=== PATIENT | male | born 1950 | race Caucasian/White ===

== ENCOUNTER 2018-11-19 12:53 | Inpatient (IN) ==
--- NOTE | 2018-11-19 13:15 | Emergency Department Note ---
Disposition Clinical Impression: Hyperglycemia, Dehydration, Abnormal blood smear Disposition: Admitted As Inpatient Condition: Fair [facility] Care Provider[facility] - Time of Disposition: 15:56 Fall HPI - General Stated Complaint: fall Time Seen by Provider: 11/19/18 13:04 Nursing Notes Reviewed: Yes Vital Signs Reviewed: Yes - History of Present Illness HPI Narrative: 68-year-old male presents from the [place] via EMS for evaluation after fall. Norman lechuga is a resident of a long-term care facility. He was recently discharged from their medical floor for treatment of UTI by IV antibiotics. [facility] staff informs EMS the patient is at his baseline mentation. This fall was unwitnessed. Per staff, he was not down on the floor but moments. At baseline, patient is not ambulatory with some confusion. He thought he can walk, stood up to go to the bathroom, and probably felt before. PMH: Current treatment for multidrug resistant Proteus as well as Klebsiella pneumonia UTI, history of MRSA. Was receiving ampicillin sulbactam. Nonambulatory and wheelchair dependent secondary to bilateral lower extremity ostial myelitis. Type 2 diabetes. Diabetic retinopathy. Neurogenic bladder with chronic indwelling suprapubic catheter. Schizoaffective disorder. CHF. Hyperlipidemia. CAD. History of retraction shrapnel from injury. Was diagnosed 2 weeks ago with influenza. 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 ROS not obtainable secondary to patient's baseline mental state. He denies any pain or any problems at this time. - Related Data Previous Rx's Medication Instructions Recorded Polyethylene Glycol 3350 [MiraLAX] 17 gm PO BID #20 powd.pack 07/09/16 levoFLOXacin [Levaquin] 750 mg PO DAILY #7 tablet 02/20/18 Allergies Allergy/AdvReac Type Severity Reaction Status Date / Time Amoxicillin Allergy Anaphylaxis Verified 07/09/16 17:38 clavulanic acid Allergy Anaphylaxis Verified 07/09/16 17:38 Limitations: ROS unobtainable due to patients medical condition Fall PMH - Past Medical History Medical history: Reports: CHF, diabetes, hyperlipidemia Psychiatric history: Reports: schizophrenia - Social History Smoking Status: Never smoker Alcohol use: Reports: none Drug use: Reports: none Physical Exam Primary survey: Airway: Intact; patient is speaking in complete sentences and maintaining secretions. Breathing: No chest wall tenderness. Bilateral breath sounds equal. Circulation: Bilateral radial, posterior tibial, pulses 2/4. No hemorrhaging. Disability: GCS 15. Exposure: No abrasions, lacerations, ecchymosis, or hematomas on the patient's scalp or face, trunk, extremities. Secondary survey Vital Signs Reviewed General: Patient is alert, oriented, and in no acute distress. Patient appears cachectic and protein malnourished. Patient on backboard with c-collar in place. HEENT: No facial asymmetry. Head is normocephalic and atraumatic. PERRLA, EOMI. Nasal turbinates moist and pink without epistaxis. Oral mucosa dry. Tympanic membranes without hemotympanum bilaterally. Poor dentition appears intact. No blood in the mouth. Cardiovascular: Heart regular rate and rhythm without clicks, rubs, gallops, or murmurs. No JVD. PMI nondisplaced. Respiratory: Symmetric chest rise with good respiratory effort. Bilateral breath sounds are clear without wheezing, crackles, or rhonchi. Abdomen: Bowel sounds present normoactive x-4 quadrants. Abdomen is soft, nondistended, and nontender. No organomegaly noted. Musculoskeletal: Spontaneously moving all extremities. Full range of motion in upper extremities. Upper extremity strength 4/5 and equal bilaterally. Sensation light touch equal bilaterally in upper and lower extremities. No focal neurologic deficits. Nontender midline and C-spine, T-spine, L-spine. Neuro: Sensation light touch intact. Psych: Patient's affect is appropriate for situation. Course Course Narrative: After primary and secondary survey, patient removed from backboard without difficulty. CT head and C-spine, chest x-ray, EKG, lab work, urinalysis. CT head unremarkable per radiology read. CT C-spine unremarkable for renal injury. Chest x-ray unremarkable. Serum hematology shows marked leukocytosis with white count of 19. Differential shows smudge cells. Reflexive blood smear concerning for stress lymphocytosis versus CLL. In reviewing patient's documentation from the [place], he carries no prior diagnosis of any malignancy. Patient clinically appears dehydrated. 1 L normal saline provided. Serum chemistry correlates. Patient is hypernatremic; cortical suspect hypovolemic hypernatremia. Urinalysis concerning for continued UTI. This is potentially chronic in nature. Culture pending. Hold on antibiotics at this time. The patient is a resident of the [facility], concern of his leukocytosis and smudge cells. Patient is agreeable to admission for continued evaluation. I discussed this with the admitting hospitalist, Dr. Hickey, who agrees to accept the patient for continued evaluation. Cervical Spine CT 11/19/18 13:06 IMPRESSION: No acute abnormality of the cervical spine. D/ / Patrick Grant MD / Patrick Grant MD Interpreting Provider: Patrick Grant MD Chest X-Ray 11/19/18 13:06 IMPRESSION: Rotated exam, without gross acute process. D/ / Reji Phillips MD / Reji Phillips MD Interpreting Provider: Reji Phillips MD Head CT 11/19/18 13:06 IMPRESSION: No acute intracranial abnormality. Small right mastoid effusion. D/ / Des Sanabria MD / Des Sanabria MD Interpreting Provider: Des Sanabria MD Vital Signs Temperature 98.1 F 11/19/18 13:28 Pulse Rate 87 11/19/18 13:28 Respiratory Rate 16 11/19/18 13:28 Blood Pressure 148/56 11/19/18 13:28 O2 Sat by Pulse Oximetry 97 11/19/18 13:28 Temperature 98.1 F 11/19/18 13:28 Pulse Rate 91 11/19/18 15:27 Respiratory Rate 16 11/19/18 15:27 Blood Pressure 161/57 11/19/18 15:27 O2 Sat by Pulse Oximetry 98 11/19/18 15:27 Oxygen Delivery Oxygen Delivery Room Air Fall - Lab Data Result diagrams: 11/19/18 13:06 11/19/18 13:06 Lab Results 11/19/18 11/19/18 11/19/18 Range/Units 13:06 13:06 13:31 WBC 19.0 H (4.3-11.1) K/mcL RBC 4.05 L (4.19-5.50) M/mcL Hgb 11.7 L (12.9-16.9) g/dL Hct 37.0 L (37.5-50.1) % MCV 91.4 (83.0-100.0) fL MCH 28.9 (28.0-33.3) pg MCHC 31.6 (31.6-35.5) g/dL RDW 14.7 H (11.5-14.5) % Plt Count 437 H (140-400) K/mcL MPV 10.2 (9.4-12.4) fL Seg Neutrophils % 30.0 % Lymphocytes % 68.0 % Monocytes % 1.0 % Promyelocytes % 1.0 H (0) % Neutrophils # 5.7 (1.6-8.9) K/mcL Lymphocytes # 12.9 H (0.6-4.6) K/mcL Monocytes # 0.2 (0.0-1.3) K/mcL Reactive Lymphocytes Present A (Not Present) Smudge Cells Present A (Not Present) Platelet Estimate Slight increase H (Normal) Sodium 147 H (136-145) mEq/L Potassium 3.5 (3.5-5.1) mEq/L Chloride 109 H (98-107) mEq/L Carbon Dioxide 24 (23-29) mEq/L BUN 32 H (8-23) mg/dL Creatinine 0.87 (0.70-1.30) mg/dL Est GFR ( Amer) > 60 (> 60) Est GFR (Non-Af Amer) > 60 (> 60) BUN/Creatinine Ratio 37 H (6-26) Glucose 428 H (70-105) mg/dL Calculated Osmolality 329 H (280-300) Lactic Acid 1.4 (0.5-2.2) mmol/L Calcium 9.8 (8.6-10.3) mg/dL Magnesium 2.1 (1.6-2.6) mg/dL Troponin I 0.03 (< 0.04) ng/mL Urine Color (Yellow) Urine Clarity (Clear) Urine pH (5.0-8.0) pH Units Ur Specific [place] (1.010-1.025) Urine Protein (Neg-Trace) mg/dL Urine Glucose (UA) (Normal) mg/dL Urine Ketones (Negative) mg/dL Urine Blood (Negative) Urine Nitrite (Negative) Urine Bilirubin (Negative) Urine Urobilinogen (Normal) mg/dL Ur Leukocyte Esterase (Negative) Urine Microscopic RBC (0-3) per hpf Urine Microscopic WBC (0-3) per hpf Ur Squamous Epith Cells (None-Few) per lpf Urine Yeast (None Seen) per hpf Ur Culture Indicated? (NO) 11/19/18 Range/Units 14:44 WBC (4.3-11.1) K/mcL RBC (4.19-5.50) M/mcL Hgb (12.9-16.9) g/dL Hct (37.5-50.1) % MCV (83.0-100.0) fL MCH (28.0-33.3) pg MCHC (31.6-35.5) g/dL RDW (11.5-14.5) % Plt Count (140-400) K/mcL MPV (9.4-12.4) fL Seg Neutrophils % % Lymphocytes % % Monocytes % % Promyelocytes % (0) % Neutrophils # (1.6-8.9) K/mcL Lymphocytes # (0.6-4.6) K/mcL Monocytes # (0.0-1.3) K/mcL Reactive Lymphocytes (Not Present) Smudge Cells (Not Present) Platelet Estimate (Normal) Sodium (136-145) mEq/L Potassium (3.5-5.1) mEq/L Chloride (98-107) mEq/L Carbon Dioxide (23-29) mEq/L BUN (8-23) mg/dL Creatinine (0.70-1.30) mg/dL Est GFR ( Amer) (> 60) Est GFR (Non-Af Amer) (> 60) BUN/Creatinine Ratio (6-26) Glucose (70-105) mg/dL Calculated Osmolality (280-300) Lactic Acid (0.5-2.2) mmol/L Calcium (8.6-10.3) mg/dL Magnesium (1.6-2.6) mg/dL Troponin I (< 0.04) ng/mL Urine Color Yellow (Yellow) Urine Clarity Slightly Cloudy A (Clear) Urine pH 5.5 (5.0-8.0) pH Units Ur Specific [place] 1.020 (1.010-1.025) Urine Protein 100 H (Neg-Trace) mg/dL Urine Glucose (UA) 500 H (Normal) mg/dL Urine Ketones >=160 H (Negative) mg/dL Urine Blood Small H (Negative) Urine Nitrite Negative (Negative) Urine Bilirubin Small H (Negative) Urine Urobilinogen Normal (Normal) mg/dL Ur Leukocyte Esterase Small H (Negative) Urine Microscopic RBC 0-3 (0-3) per hpf Urine Microscopic WBC 50-100 H (0-3) per hpf Ur Squamous Epith Cells Few (None-Few) per lpf Urine Yeast Many H (None Seen) per hpf Ur Culture Indicated? YES A (NO)
[2018-11-19 13:56] LABS: Hemoglobin 11.7 g/dL (12.9-16.9); Mean Corpuscular HGB Conc 31.6 g/dL (31.6-35.5); Mean Corpuscular Hemoglobin 28.9 pg (28.0-33.3); Mean Corpuscular Volume 91.4 fL (83.0-100.0); Mean Platelet Volume 10.2 fL (9.4-12.4); Platelet Count 437 K/mcL (140-400); Red Blood Count 4.05 M/mcL (4.19-5.50); Red Cell Distribution Width 14.7 % (11.5-14.5)
[2018-11-19 14:12] LABS: BUN/Creatinine Ratio 37 (6-26); Blood Urea Nitrogen 32 mg/dL (8-23); Calcium 9.8 mg/dL (8.6-10.3); Carbon Dioxide 24 mEq/L (23-29); Chloride 109 mEq/L (98-107); Glucose 428 mg/dL (70-105); Magnesium 2.1 mg/dL (1.6-2.6); Osmolality,Calculated 329 (280-300); Potassium 3.5 mEq/L (3.5-5.1); Sodium 147 mEq/L (136-145); eGFR For Non-African Americans > 60 (> 60)
[2018-11-19 14:13] LABS: Troponin I 0.03 ng/mL (< 0.04)
[2018-11-19 14:34] LABS: Lymphocytes # 12.9 K/mcL (0.6-4.6); Neutrophils # 5.7 K/mcL (1.6-8.9)
[2018-11-19 14:37] LABS: Monocytes # 0.2 K/mcL (0.0-1.3); Smudge Cells Present (Not Present)
[2018-11-19 14:42] LABS: Reactive Lymphocytes Present (Not Present)
[2018-11-19] MEDS ORDERED: 0.9 % Sodium Chloride 1,000 ML IVC ONE (15:00)
[2018-11-19 15:05] LABS: Bilirubin,Urine Small (Negative); Blood,Urine Small (Negative); Clarity,Urine Slightly Cloudy (Clear); Color,Urine Yellow (Yellow); Glucose,Urine (UA) 500 mg/dL (Normal); Ketones,Urine >=160 mg/dL (Negative); Leukocyte Esterase,Urine Small (Negative); Nitrite,Urine Negative (Negative); PH,Urine 5.5 pH Units (5.0-8.0); Protein,Urine 100 mg/dL (Neg-Trace); Urobilinogen,Urine Normal (Normal)
[2018-11-19] MEDS ORDERED: Insulin Human Regular 10 UNIT in 0.9 % Sodium Chloride 10 ML IV ONE (15:33)
--- NOTE | 2018-11-19 15:36 | Emergency Department Note ---
Disposition Clinical Impression: Hyperglycemia, Dehydration Disposition: Admitted As Inpatient Condition: Good [facility]Primary Care Provider[facility] - Time of Disposition: 15:36 General Adult HPI - General Chief complaint: ED Fall Stated complaint: fall Time Seen by Provider: 11/19/18 13:04 Source: EMS Limitations: physical limitation - History of Present Illness Pain Scale: 0 - Related Data Previous Rx's Medication Instructions Recorded Polyethylene Glycol 3350 [MiraLAX] 17 gm PO BID #20 powd.pack 07/09/16 levoFLOXacin [Levaquin] 750 mg PO DAILY #7 tablet 02/20/18 Allergies Allergy/AdvReac Type Severity Reaction Status Date / Time Amoxicillin Allergy Anaphylaxis Verified 07/09/16 17:38 clavulanic acid Allergy Anaphylaxis Verified 07/09/16 17:38 Past Medical History - Past Medical History Medical history: Reports: CHF, diabetes, hyperlipidemia Psychiatric history: Reports: schizophrenia - Social History Smoking Status: Never smoker Smokeless Tobacco Status: No Alcohol use: Reports: none Drug use: Reports: none Physical Exam - General Limitations: physical limitation General appearance: alert Course Vital Signs Temperature 98.1 F 11/19/18 13:28 Pulse Rate 87 11/19/18 13:28 Respiratory Rate 16 11/19/18 13:28 Blood Pressure 148/56 11/19/18 13:28 O2 Sat by Pulse Oximetry 97 11/19/18 13:28 Temperature 98.1 F 11/19/18 13:28 Pulse Rate 91 11/19/18 15:27 Respiratory Rate 16 11/19/18 15:27 Blood Pressure 161/57 11/19/18 15:27 O2 Sat by Pulse Oximetry 98 11/19/18 15:27 Oxygen Delivery Oxygen Delivery Room Air Medical Decision Making - Lab Data Result diagrams: 11/19/18 13:06 11/19/18 13:06 Lab Results 11/19/18 11/19/18 11/19/18 Range/Units 13:06 13:06 13:31 WBC 19.0 H (4.3-11.1) K/mcL RBC 4.05 L (4.19-5.50) M/mcL Hgb 11.7 L (12.9-16.9) g/dL Hct 37.0 L (37.5-50.1) % MCV 91.4 (83.0-100.0) fL MCH 28.9 (28.0-33.3) pg MCHC 31.6 (31.6-35.5) g/dL RDW 14.7 H (11.5-14.5) % Plt Count 437 H (140-400) K/mcL MPV 10.2 (9.4-12.4) fL Seg Neutrophils % 30.0 % Lymphocytes % 68.0 % Monocytes % 1.0 % Promyelocytes % 1.0 H (0) % Neutrophils # 5.7 (1.6-8.9) K/mcL Lymphocytes # 12.9 H (0.6-4.6) K/mcL Monocytes # 0.2 (0.0-1.3) K/mcL Reactive Lymphocytes Present A (Not Present) Smudge Cells Present A (Not Present) Platelet Estimate Slight increase H (Normal) Sodium 147 H (136-145) mEq/L Potassium 3.5 (3.5-5.1) mEq/L Chloride 109 H (98-107) mEq/L Carbon Dioxide 24 (23-29) mEq/L BUN 32 H (8-23) mg/dL Creatinine 0.87 (0.70-1.30) mg/dL Est GFR ( Amer) > 60 (> 60) Est GFR (Non-Af Amer) > 60 (> 60) BUN/Creatinine Ratio 37 H (6-26) Glucose 428 H (70-105) mg/dL Calculated Osmolality 329 H (280-300) Lactic Acid 1.4 (0.5-2.2) mmol/L Calcium 9.8 (8.6-10.3) mg/dL Magnesium 2.1 (1.6-2.6) mg/dL Troponin I 0.03 (< 0.04) ng/mL Urine Color (Yellow) Urine Clarity (Clear) Urine pH (5.0-8.0) pH Units Ur Specific [place] (1.010-1.025) Urine Protein (Neg-Trace) mg/dL Urine Glucose (UA) (Normal) mg/dL Urine Ketones (Negative) mg/dL Urine Blood (Negative) Urine Nitrite (Negative) Urine Bilirubin (Negative) Urine Urobilinogen (Normal) mg/dL Ur Leukocyte Esterase (Negative) 11/19/18 Range/Units 14:44 WBC (4.3-11.1) K/mcL RBC (4.19-5.50) M/mcL Hgb (12.9-16.9) g/dL Hct (37.5-50.1) % MCV (83.0-100.0) fL MCH (28.0-33.3) pg MCHC (31.6-35.5) g/dL RDW (11.5-14.5) % Plt Count (140-400) K/mcL MPV (9.4-12.4) fL Seg Neutrophils % % Lymphocytes % % Monocytes % % Promyelocytes % (0) % Neutrophils # (1.6-8.9) K/mcL Lymphocytes # (0.6-4.6) K/mcL Monocytes # (0.0-1.3) K/mcL Reactive Lymphocytes (Not Present) Smudge Cells (Not Present) Platelet Estimate (Normal) Sodium (136-145) mEq/L Potassium (3.5-5.1) mEq/L Chloride (98-107) mEq/L Carbon Dioxide (23-29) mEq/L BUN (8-23) mg/dL Creatinine (0.70-1.30) mg/dL Est GFR ( Amer) (> 60) Est GFR (Non-Af Amer) (> 60) BUN/Creatinine Ratio (6-26) Glucose (70-105) mg/dL Calculated Osmolality (280-300) Lactic Acid (0.5-2.2) mmol/L Calcium (8.6-10.3) mg/dL Magnesium (1.6-2.6) mg/dL Troponin I (< 0.04) ng/mL Urine Color Yellow (Yellow) Urine Clarity Slightly Cloudy A (Clear) Urine pH 5.5 (5.0-8.0) pH Units Ur Specific [place] 1.020 (1.010-1.025) Urine Protein 100 H (Neg-Trace) mg/dL Urine Glucose (UA) 500 H (Normal) mg/dL Urine Ketones >=160 H (Negative) mg/dL Urine Blood Small H (Negative) Urine Nitrite Negative (Negative) Urine Bilirubin Small H (Negative) Urine Urobilinogen Normal (Normal) mg/dL Ur Leukocyte Esterase Small H (Negative) Attestation Statement - Attestation Attestation: I examined this patient and my medical decision-making was reviewed with the Resident Physician. I agree with the documented findings, disposition and treatment plan as described except to the extent set forth below. 68 year old male fromthe [facility] presents after a fall. most recently he was admitted inpatient to the [place] for a uti and discharged back to the [facility]. He has a fall today and appears more confused to the staff thus requiriing evaluation here. He appears acutely dehydrated and possibly secondary to a UTI or possibly hyperglylcemia causing his dehydration to wrosen, because he is an insulin/metformin dependent diabetic. There are appers to be some ketones prese nt in his urine, vbg and ketones pedings, gap of 14.
[2018-11-19 15:42] LABS: WBC,Urine 50-100 per hpf (0-3); Yeast,Urine Many per hpf (None Seen)
[2018-11-19 15:43] LABS: RBC,Urine 0-3 per hpf (0-3); Squamous Epithelial Cell,Urine Few per lpf (None-Few)
[2018-11-19] MEDS ORDERED: Naloxone 0.4 MG/ML INJ IVP PRN (16:06)
[2018-11-19] MEDS ORDERED: Dextrose 4 GM Chewable Tablets PO PRN ×2 (16:07)
[2018-11-19] MEDS ORDERED: D5% in Water 1,000 ML IVC PRN (16:07)
[2018-11-19] MEDS ORDERED: *HR* Dextrose 50 % in Water (Syg) 50 ML SYRINGE IVP PRN (16:07)
[2018-11-19] MEDS ORDERED: Dextrose Gel 15 GM/37.5 ML TUBE PO PRN ×2 (16:07)
[2018-11-19 16:16] LABS: VBG HCO3 24 mEq/L (21-27); VBG PCO2 34 mmHg (41-51); VBG PH 7.46 pH Units (7.32-7.42); VBG PO2 181 mmHg (25-50)
--- NOTE | 2018-11-19 16:36 | Internal Med History&Physical ---
Date of Encounter: 11/19/18 Time of Encounter: 16:00 Internal Medicine - H&P: HPI Chief complaint: fall, MDRO UTI Admitted From: Long-term Nursing Facility History of present illness: Mr. Haynes is a 68 year old male, [facility] patient with past medical history of CAD, CHF, diabetes, neurogenic bladder on suprapubic catheter, ?Parkinson's, recently treated MDRO UTI, presented to the ED from [facility] nursing facility after an episode of fall. History is somewhat limited due to pt's underlying cognitive impairment hence further information was obtained from the ED physician. He was recently discharged from [facility] medical floor after being treated for MDRO UTI with IV Unasyn. Today, pt was rushing to get cleaned, missed a footing, and fell. Unwitnessed, no change in mental statu per [facility] staff. No report of prodromal symptoms, seizure like activities, loss of bowel control, or confusion after the fall. No fever/chills, N/V, abdominal pain, flank pain. Denies any chest pain, shortness of breath, cough, or sputum production. In the ED, he was afebrile a nd hemodynamically stable. Labwork showed leukocytosis of 19 with peripheral blood smear showing increased mature lymphocytes. Sodium of 147, creatinine 0.87, and glucose of 428. Lactate normal. Urinalysis revealed small amount of LE. CT head and cervical spine did not show any traumatic injury. Chest x-ray grossly normal. Patient was given IVF, IV insulin 10U, and admitted for further management. Upon reviewing the record from [place], his white count for the last 3 days were above 20. Past Med Surg Social Fam HX - Past Medical History Medical history: CHF, diabetes, hyperlipidemia Additional medical history: immobile, osteomylitis Psychiatric history: schizophrenia - Past Surgical History Additional surgical history: immobility secondary to osteomylitis. suprapubic cath - Social History Smoking Status: Never smoker Smokeless Tobacco Status: No Alcohol use: none Drug use: none - Additional Family History Additional family history: Reviewed and noncontributory Internal Medicine - H&P: Meds Polyethylene Glycol 3350 [MiraLAX] 17 gm PO BID #20 powd.pack 07/09/16 [Rx] levoFLOXacin [Levaquin] 750 mg PO DAILY #7 tablet 02/20/18 [Rx] Allergy/AdvReac Type Severity Reaction Status Date / Time Amoxicillin Allergy Anaphylaxis Verified 07/09/16 17:38 clavulanic acid Allergy Anaphylaxis Verified 07/09/16 17:38 All Systems PM: A 10-system review of systems was performed and is negative for pertinent findings except as documented above in the HPI. - Constitutional Vitals: Temp Pulse Resp BP Pulse Ox 98.1 F 91 16 161/57 98 11/19/18 13:28 11/19/18 15:27 11/19/18 15:27 11/19/18 15:27 11/19/18 15:27 Exam: General: Alert, mumbled speech. not in acute distress. HEENT: pupils equal, round and reactive. Cardiovascular:Normal S1 & S2, No JVD. Pulse regular. Lungs: clear to auscultation, no wheezes/rales Abdomen:Soft, non-tender, no rigidity. : Suprapubic catheter draining cloudy urine. No CVA tenderness Extremities: decubitus ulcer noted on L heel without evidence of surrounding infection Neurological: grossly non-focal Skin:Normal color, no rash, no lesions. Pulses:Carotid and radial pulses normal +2. Rest of the physical exam is non contributory Internal Med - H&P Results - Labs CBC & Chem 7: 11/19/18 13:06 11/19/18 13:06 Labs: Short CBC 11/19/18 Range/Units 13:06 WBC 19.0 H (4.3-11.1) K/mcL Hgb 11.7 L (12.9-16.9) g/dL Hct 37.0 L (37.5-50.1) % Plt Count 437 H (140-400) K/mcL Neutrophils # 5.7 (1.6-8.9) K/mcL BMP 11/19/18 13:06 Sodium 147 H Potassium 3.5 Chloride 109 H Carbon Dioxide 24 BUN 32 H Creatinine 0.87 Glucose 428 H Calcium 9.8 Cardiac Enzymes 11/19/18 Range/Units 13:06 Troponin I 0.03 (< 0.04) ng/mL Urine 11/19/18 Range/Units 14:44 Urine Color Yellow (Yellow) Urine Clarity Slightly Cloudy A (Clear) Urine pH 5.5 (5.0-8.0) pH Units Ur Specific [place] 1.020 (1.010-1.025) Urine Protein 100 H (Neg-Trace) mg/dL Urine Glucose (UA) 500 H (Normal) mg/dL - ABG Interpretation ABG results: 11/19/18 16:14 VBG pH 7.46 H VBG pCO2 34 L VBG pO2 181 H VBG HCO3 24 - Impressions ITS Impressions Cervical Spine CT 11/19/18 13:06 IMPRESSION: No acute abnormality of the cervical spine. D/ / Patrick Grant MD / Patrick Grant MD Interpreting Provider: Patrick Grant MD Chest X-Ray 11/19/18 13:06 IMPRESSION: Rotated exam, without gross acute process. D/ / Reji Phillips MD / Reji Phillips MD Interpreting Provider: Reji Phillips MD Head CT 11/19/18 13:06 IMPRESSION: No acute intracranial abnormality. Small right mastoid effusion. D/ / Des Sanabria MD / Des Sanabria MD Interpreting Provider: Des Sanabria MD - Assessment and plan (1) Fall Current Visit: Yes Status: Acute Assessment and plan: appears to be mechanical in nature in the setting of infection CT -ve for traumatic sequelae tx infection as below check orthostatics telemetry Qualifiers: Encounter type: initial encounter Qualified Code(s): W19.XXXA - Unspecified fall, initial encounter (2) Complicated UTI (urinary tract infection) Current Visit: Yes Status: Acute Assessment and plan: presented after an episode of fall persistent leukocytosis of 19 but it appears to have improved from 11/16- when it was above 20 reportedly on unasyn at the nursing facility sensitivities from urine culture on 11/02 reviewed start ertapenem (tolerated unasyn despite reported allergy to augmentin) check US retroperitoneum ?pyelo ID consult (3) Hyperglycemia Current Visit: Yes Status: Acute Assessment and plan: History of diabetes, glycemic control likely aggravated by ongoing infection. given 10U of IV insulin in the ED moderate dose sliding scale ADA diet (4) Hypernatremia Current Visit: Yes Status: Acute Assessment and plan: gentle hydration with 0.45% saline (5) CAD (coronary artery disease) Current Visit: Yes Status: Chronic Assessment and plan: resume home meds once reconciled Qualifiers: Coronary Disease-Associated Artery/Lesion type: unspecified vessel or lesion type [place] vs. transplanted heart: [place] heart Associated angina: without angina Qualified Code(s): I25.10 - Atherosclerotic heart disease of [place] coronary artery without angina pectoris (6) DVT prophylaxis Current Visit: Yes Status: Acute Assessment and plan: SQ heparin - Time Spent With Patient Total time spent is greater than 50% in coordination of care (as documented) at patient's floor/unit and/or counseling patient:
[2018-11-19] MEDS ORDERED: Ondansetron 4 MG/2 ML VIAL IVP ONE (18:14)
[2018-11-19] MEDS: Ertapenem 1,000 MG in 0.9 % Sodium Chloride Mini Bag 100 ML IVPB SCH (18:28)
[2018-11-19] MEDS: Insulin LISPRO 300 UNITS/3 ML VIAL SQ SCH ×2 (23:14→23:16)
[2018-11-19] MEDS: *HR* Heparin 5,000 UNIT/ML VIAL SQ SCH (23:15)
[2018-11-20 03:30] LABS: Basophils # 0.1 K/mcL (0.0-0.2); Basophils % 0.3 %; Eosinophils # 0.2 K/mcL (0.0-0.6); Eosinophils % 1.1 %; Hematocrit 33.8 % (37.5-50.1); Hemoglobin 10.7 g/dL (12.9-16.9); Immature Granulocytes % 0.4 % (0-4); Lymphocytes # 9.6 K/mcL (0.6-4.6); Lymphocytes % 57.7 %; Mean Corpuscular HGB Conc 31.7 g/dL (31.6-35.5); Mean Corpuscular Hemoglobin 28.9 pg (28.0-33.3); Mean Corpuscular Volume 91.4 fL (83.0-100.0); Mean Platelet Volume 10.2 fL (9.4-12.4); Monocytes # 0.8 K/mcL (0.0-1.3); Monocytes % 4.5 %; Platelet Count 351 K/mcL (140-400); Red Cell Distribution Width 14.7 % (11.5-14.5)
[2018-11-20 03:46] LABS: BUN/Creatinine Ratio 39 (6-26); Blood Urea Nitrogen 23 mg/dL (8-23); Carbon Dioxide 25 mEq/L (23-29); Chloride 113 mEq/L (98-107); Glucose 234 mg/dL (70-105); Magnesium 1.9 mg/dL (1.6-2.6); Osmolality,Calculated 305 (280-300); Potassium 3.4 mEq/L (3.5-5.1); Sodium 142 mEq/L (136-145); eGFR For Non-African Americans > 60 (> 60)
[2018-11-20] MEDS: *HR* Heparin 5,000 UNIT/ML VIAL SQ SCH ×2 (06:48→17:38)
[2018-11-20] MEDS: Insulin LISPRO 300 UNITS/3 ML VIAL SQ SCH ×4 (08:06→20:30)
[2018-11-20] MEDS: Ertapenem 1,000 MG in 0.9 % Sodium Chloride Mini Bag 100 ML IVPB SCH (08:07)
[2018-11-20] MEDS: Potassium Chloride Elixir 20 MEQ/15 ML UDC PO SCH ×2 (08:55→20:53)
--- NOTE | 2018-11-20 10:40 | Infectious Disease Consult ---
Date of Encounter: 11/20/18 Time of Encounter: 10:09 Assessment and Plan (1) Complicated UTI (urinary tract infection) Status: Acute Assessment and plan: Urinalysis and symptoms are concerning for UTI in setting of suprapubic catheter. -Patient reports symptoms of fever, chills, foul-smelling urine, urine leakage around super pubic catheter -[facility] with [facility]yn; urinalysis on 10/29/2018 grew Klebsiella pneumoniae and Proteus Mirabilis, that had sensitivity to cefazolin, cefepime, ceftriaxone, ertapenem, imipenem, Zosyn. -Afebrile, hemodynamically stable -WBC 16.6 (19 yesterday) -Urinalysis with proteinuria, ketones, glucose, leukocyte esterase, WBC 50 to 100, yeast -11/19/2018 Blood culture x2 pending -11/19/2018 urine culture pending -no leakage around suprapubic catheter site and it is draining appropriately into [place] bag Plan: -start ceftriaxone -stop ertapenem day 2 -await urine culture results -await the blood culture results -respiratory infectious panel ordered since patient is a poor historian and to make sure no pulmonary pathology (2) Ulcer of left heel Status: Acute Assessment and plan: Patient presented with ulcer on left heel -does not appear infected at this time -left heel ulcer that has a little purulent around edge but clean base through subcutaneous tissue measuring 5 x 4 cm. plan: -continue abx as above -ordered wound culture of left heal -ordered ESR, CRP -ordered left foot XR -recommend consult podiatry for evaluation of heal ulcer Qualifiers: Non-pressure ulcer stage: with fat layer exposed Qualified Code(s): L97.422 - Non-pressure chronic ulcer of left heel and midfoot with fat layer exposed Infectious Disease HPI - Data of Consult Patient: new to practice Consult date: 11/19/18 Requesting Physician: Yg Barnes MD Primary Care Provider: [facility] - Consult Narrative Reason for consult: MDRO, UTI Klebsiella and Proteus in past History of present illness: Mr. Haynes is a 68 year old male who presented to [facility] the [facility] on 11/[facility] due to a fall. Infectious disease was consulted on 11/19/2018 due to recent MDRO UTI with Klebsiella and Proteus, persistent leukocytosis. The patient has a past medical history of COPD, diabetes, CHF, schizophrenia, neurogenic bladder with suprapubic catheter, nonambulatory and wheelchair dependent secondary to bilateral lower extremity osteomyelitis. He is a patient of a long-term care facility at the [facility]. Per medical records the patient had recently been admitted to the [facility] due to a UTI that was treated with unasyn. Upon examination of the patient there is no family at bedside. The patient was alert and oriented to person, place, time however during the examination he did have some inappropriate responses and comments. The patient reported that yesterday he was getting up to go to the bathroom and got dizzy an d fell and hit his head on the floor. He stated that he did not lose consciousness. The patient did admit that he had been recently admitted to the [facility] for [facility]. He stated that he still has UTI symptoms now such as foul- smelling urine and suprapubic tenderness. He stated that urine is leaking from around the suprapubic catheter. He admits to fever and chills. Denies chest pain, shortness of breath, headache, cough, abdominal pain, nausea. During the examination the patient did inappropriately started saying a 1 800-number. On presentation to [facility] initial vitals were within normal limits such as afebrile and hemodynamically stable. WBC 19, hemoglobin 11.7, platelets 437, sodium 147, glucose glucose for 28, lactic acid 1.4, beta hydroxybutyric acid >2.0. Urinalysis with proteinuria, ketones, glucose, leukocyte esterase, WBC 50 to 100, yeast. Blood culture and urine culture were taken and no growth to date. Head CT, cervical spine CT, chest x-ray were all unremarkable for an acute process. The patient was started on ertapenem and a retroperitoneal ultrasound was ordered. Review of labs and imaging at the [facility] are as follows: urinalysis on 10/29/2018 grew Klebsiella pneumoniae and Proteus Mirabilis, that had sensitivity to cefazolin, cefepime, ceftriaxone, ertapenem, imipenem, Zosyn. 11/18/2018 labs: WBC 21.2, hemoglobin 11.6, creatinine 0.9, CC: Yg Barnes MD Past Med Surg Social Fam HX - Past Medical History Attestation: Yes The following information was validated with the patient. Source: patient Medical history: CHF, coronary artery disease, diabetes, GERD, hyperlipidemia, hypertension Additional medical history: immobile, osteomylitis Psychiatric history: schizophrenia - Past Surgical History Surgical History: non-contributory Additional surgical history: immobility secondary to osteomylitis. suprapubic cath - Social History Smoking Status: Never smoker Smokeless Tobacco Status: No Alcohol use: none Drug use: none Infectious Disease-CN:Meds Acetaminophen [Tylenol] 650 mg PO Q6HR PRN 11/20/18 [History] Atorvastatin [Lipitor] 20 mg PO HS 11/20/18 [History] Bisacodyl [Dulcolax] 10 mg PRIME MOWEFR 11/20/18 [History] Clopidogrel [Plavix] 75 mg PO DAILY 11/20/18 [History] Insulin Glargine,Hum.rec.anlog [Basaglar Kwikpen U-100] 31 unit SQ QAM 11/20/18 [History] Insulin LISPRO [Humalog] 4 unit SQ TIDWM 11/20/18 [History] Isosorbide MONOnitrate (24 HR) [Imdur] 30 mg PO DAILY 11/20/18 [History] Lactulose [Enulose] 20 gm PO BID 11/20/18 [History] Losartan [Cozaar] 50 mg PO DAILY 11/20/18 [History] Magnesium Hydroxide [Milk of Magnesia] 30 ml PO DAILY PRN 11/20/18 [History] Ondansetron [Zofran] 4 mg IVP Q4H PRN 11/20/18 [History] Pantoprazole Sodium [Protonix] 40 mg PO DAILY 11/20/18 [History] Polyethylene Glycol 3350 [MiraLAX] 17 gm PO DAILY 11/20/18 [History] RX: Aspirin 81 mg PO DAILY 11/20/18 [History] RX: Bacitracin OINT PKT [Ak-Tracin] 1 appl TP DAILY 11/20/18 [History] RX: Brimonidine 0.2% [Alphagan] 1 drop BOTH EYES BID 11/20/18 [History] RX: Cholecalciferol (D-3) [Vitamin D] 1,000 units PO DAILY 11/20/18 [History] RX: Metoprolol Succinate [Toprol Xl] 25 mg PO DAILY 11/20/18 [History] RX: Multivitamin [One Daily Multivitamin] 1 tab PO DAILY 11/20/18 [History] RX: Tramadol HCl [Ultram] 50 mg PO TID PRN 11/20/18 [History] RX: Travoprost [Travatan Z] 1 drop BOTH EYES HS 11/20/18 [History] RX: metFORMIN [Glucophage] 850 mg PO TIDWM 11/20/18 [History] Ziprasidone HCl [Geodon] 60 mg PO BIDWM 11/20/18 [History] amLODIPine [Norvasc] 10 mg PO DAILY 11/20/18 [History] lamoTRIgine [Lamotrigine] 150 mg PO DAILY 11/20/18 [History] Allergy/AdvReac Type Severity Reaction Status Date / Time Amoxicillin Allergy Anaphylaxis Verified 07/09/16 17:38 clavulanic acid Allergy Anaphylaxis Verified 07/09/16 17:38 - Constitutional Constitutional: Present: chills, fever(s), frequent falls - EENT Eyes: Absent: change in vision, loss of vision - Cardiovascular Cardiovascular: Absent: palpitations, syncope - Respiratory Respiratory: Absent: cough, dyspnea, wheezing - Gastrointestinal Gastrointestinal: Absent: abdominal pain, diarrhea, nausea, vomiting - Genitourinary Genitourinary: other (Foul-smelling urine and urine leakage around suprapubic catheter) - Integumentary Integumentary: Absent: new lesions - Neurological Neurological: Present: frequent falls. Absent: loss of vision - Endocrine Endocrine: Absent: fatigue, palpitations - Hematologic/Lymphatic Hematologic/Lymphatic: Absent: easy bleeding, easy bruising Exam - Constitutional Vitals: Temp Pulse Resp BP Pulse Ox 98.3 F 79 15 162/63 97 11/20/18 07:21 11/20/18 07:21 11/20/18 07:21 11/20/18 07:21 11/20/18 07:21 Exam: Gen.: Vitals noted. No acute distress. AAOx3 HEENT: oropharynx clear, Normocephalic, atraumatic Neck: Supple. No adenopathy. Cardiac: RRR, no murmur, +S1/S2 Pulmonary: CTA bilaterally, no wheezes, rales or rhonchi, equal chest expansion Abdomen: soft, suprapubic tender, Bowel sounds noted, no guarding, suprapubic catheter Back: b/l CVA tender skin: left heel ulcer that has a little purulent around edge but clean base through subcutaneous tissue measuring 5 x 4 cm. Extremities: no BLE edema, nontender calf Neuro: A&Ox3, moves all extremities Psych: appears somewhat confused, appropriate mood Infectious Disease CN: Results - Labs CBC & Chem 7: 11/23/18 05:40 11/23/18 05:40 Cultures: Cultures 11/19/18 14:44 Urine Culture - Preliminary Urine,Clean Catch Culture is incubating. 11/19/18 16:10 Blood Culture - Preliminary Peripheral Venipuncture Culture is incubating and being continuously monitored for growth. Final report to follow. 11/19/18 16:10 Blood Culture - Preliminary Peripheral Venipuncture Culture is incubating and being continuously monitored for growth. Final report to follow. Serology: Serology 11/19/18 Range/Units 14:44 Urine Color Yellow (Yellow) Urine Clarity Slightly Cloudy A (Clear) Urine pH 5.5 (5.0-8.0) pH Units Ur Specific [place] 1.020 (1.010-1.025) Urine Protein 100 H (Neg-Trace) mg/dL Urine Glucose (UA) 500 H (Normal) mg/dL Urine Ketones >=160 H (Negative) mg/dL Urine Blood Small H (Negative) Urine Nitrite Negative (Negative) Urine Bilirubin Small H (Negative) Urine Urobilinogen Normal (Normal) mg/dL Ur Leukocyte Esterase Small H (Negative) Urine Microscopic RBC 0-3 (0-3) per hpf Urine Microscopic WBC 50-100 H (0-3) per hpf Ur Squamous Epith Cells Few (None-Few) per lpf Urine Yeast Many H (None Seen) per hpf Ur Culture Indicated? YES A (NO) Consult Discharge Plan - Plan [facility]errals: [facility] [Primary Care Provider] - - Attending Attestation I examined this patient and my medical decision-making was reviewed with the Resident Physician. I agree with the documented findings, disposition and treatment plan as described except to the extent set forth below. This is an addendum to original report dictated by resident physician. Please refer to resident's note for details. Patient is 68-year-old gentleman with past medical history mentioned below has recurrent urinary tract infection apparently presented [facility] with a [facility] and has a bruise on his forehead today. Patient has a history of multidrug resistant organisms in the past so was referred here for further evaluation. Urine culture positive for Klebsiella pneumoniae and Proteus S: Cefazolin, cefepime, ceftriaxone, ertapenem, imipenem and Zosyn. Patient was started empirically on ertapenem were asked to evaluate the patient further recommendations. At this point -start ceftriaxone - duration of treatment depends on the clinical picture. -stop ertapenem day 2 -await urine culture results -await the blood culture results -respiratory infectious panel ordered since patient is a poor historian and to make sure no pulmonary pathology
--- NOTE | 2018-11-20 14:23 | Internal Med Progress Note ---
Hospitalist Progress Note - Encounter Date of Encounter: 11/20/18 Time of Encounter: 12:00 - Subjective Interval History: No acute events overnight. Leukocytosis trending down. No fever/chills, nausea/vomiting, or flank pain. - Exam Vitals: Temp Pulse Resp BP Pulse Ox 98.5 F 78 15 152/64 97 11/20/18 09:56 11/20/18 09:56 11/20/18 09:56 11/20/18 09:56 11/20/18 09:56 Exam: General: Alert, mumbled speech. not in acute distress. Cardiovascular:Normal S1 & S2, No JVD. Pulse regular. Lungs: clear to auscultation, no wheezes/rales Abdomen:Soft, non-tender, no rigidity. : Suprapubic catheter draining cloudy urine. No CVA tenderness Extremities: decubitus ulcer noted on L heel without evidence of surrounding infection Neurological: grossly non-focal - Assessment and Plan (1) Fall Current Visit: Yes Status: Acute Assessment and Plan: appears to be mechanical in nature in the setting of infection CT -ve for traumatic sequelae tx infection as below (2) Complicated UTI (urinary tract infection) Current Visit: Yes Status: Acute Assessment and Plan: presented after an episode of fall persistent leukocytosis of 19 but it appears to have improved from 11/16- when it was above 20 reportedly on unasyn at the [place] nursing facility sensitivities from urine culture on 11/02 reviewed started on Ertapenem yesterday. Discussed with ID, will switch to IV Rocephin (tolerated unasyn despite reported allergy to augmentin) check US retroperitoneum ?pyelo (3) Hyperglycemia Current Visit: Yes Status: Acute Assessment and Plan: History of diabetes, glycemic control likely aggravated by ongoing infection. add levemir 10U BID, continue moderate dose sliding scale ADA diet (4) Hypernatremia Current Visit: Yes Status: Resolved Assessment and Plan: due to lack of water intake improved with 0.45% saline (5) CAD (coronary artery disease) Current Visit: Yes Status: Chronic Assessment and Plan: resume home meds (6) DVT prophylaxis Current Visit: Yes Status: Acute Assessment and Plan: SQ heparin - Time Spent with Patient Total time spent is greater than 50% in coordination of care (as documented) at patient's floor/unit and/or counseling patient: Plan of Care Discussed with: patient (discussed with ID) Internal Medicine: Result - Labs CBC & Chem 7: 11/20/18 02:45 11/20/18 02:45 Labs: Short CBC 11/19/18 11/20/18 Range/Units 13:06 02:45 WBC 16.6 H (4.3-11.1) K/mcL Hgb 10.7 L (12.9-16.9) g/dL Hct 33.8 L (37.5-50.1) % Plt Count 351 (140-400) K/mcL Neutrophils # 5.7 6.0 (1.6-8.9) K/mcL BMP 11/20/18 02:45 Sodium 142 Potassium 3.4 L Chloride 113 H Carbon Dioxide 25 BUN 23 Creatinine 0.59 L Glucose 234 H Calcium 9.0 Urine 11/19/18 Range/Units 14:44 Urine Color Yellow (Yellow) Urine Clarity Slightly Cloudy A (Clear) Urine pH 5.5 (5.0-8.0) pH Units Ur Specific [place] 1.020 (1.010-1.025) Urine Protein 100 H (Neg-Trace) mg/dL Urine Glucose (UA) 500 H (Normal) mg/dL Consult Discharge Plan - Plan [facility]errals: [facility] [Primary Care Provider] - (1) Fall Qualifiers: Encounter type: initial encounter Qualified Code(s): W19.XXXA - Unspecified fall, initial encounter (5) CAD (coronary artery disease) Qualifiers: Coronary Disease-Associated Artery/Lesion type: unspecified vessel or lesion type [place] vs. transplanted heart: [place] heart Associated angina: without angina Qualified Code(s): I25.10 - Atherosclerotic heart disease of [place] coronary artery without angina pectoris
[2018-11-20] MEDS ORDERED: traMADol 50 MG TABLET PO PRN (14:24)
[2018-11-20] MEDS ORDERED: MOM Conc 10 ML UD.LIQ PO PRN (14:24)
[2018-11-20 15:22] LABS: Adenovirus Not Detected (Not Detect); Bordetella Pertussis Not Detected (Not Detect); Chlamydophila pneumoniae Not Detected (Not Detect); Coronavirus 229E Not Detected (Not Detect); Coronavirus HKU1 Not Detected (Not Detect); Coronavirus NL63 Not Detected (Not Detect); Coronavirus OC43 Not Detected (Not Detect); Human Metapneumovirus Not Detected (Not Detect); Human Rhinovirus/Enterovirus Not Detected (Not Detect); Influenza A Subtype 2009 H1 Not Detected (Not Detect); Influenza A Untypeable Not Detected (Not Detect); Influenza B Not Detected (Not Detect); Mycoplasma pneumoniae Not Detected (Not Detect); Parainfluenza Virus 1 Not Detected (Not Detect); Parainfluenza Virus 2 Not Detected (Not Detect); Parainfluenza Virus 3 Not Detected (Not Detect); Parainfluenza Virus 4 Not Detected (Not Detect); Respiratory Syncytial Virus Not Detected (Not Detect)
[2018-11-20] MEDS: Ziprasidone 20 MG CAPSULE PO SCH (17:39)
[2018-11-20] MEDS: Insulin DETEMIR 100 UNIT/ML X5UNITS SQ SCH (20:29)
[2018-11-20] MEDS: Lactulose Oral Soln 20 GM/30 ML UDC PO SCH (20:53)
[2018-11-20] MEDS: Latanoprost 2.5 ML BOTTLE BOTH EYES SCH (22:23)
[2018-11-21] MEDS: *HR* Heparin 5,000 UNIT/ML VIAL SQ SCH ×2 (05:02→18:29)
[2018-11-21 06:49] LABS: Basophils # 0.1 K/mcL (0.0-0.2); Basophils % 0.3 %; Eosinophils # 0.1 K/mcL (0.0-0.6); Eosinophils % 0.9 %; Hematocrit 39.3 % (37.5-50.1); Hemoglobin 12.1 g/dL (12.9-16.9); Immature Granulocytes % 0.5 % (0-4); Lymphocytes # 11.2 K/mcL (0.6-4.6); Lymphocytes % 72.8 %; Mean Corpuscular HGB Conc 30.8 g/dL (31.6-35.5); Mean Corpuscular Hemoglobin 28.3 pg (28.0-33.3); Mean Platelet Volume 10.5 fL (9.4-12.4); Monocytes # 0.5 K/mcL (0.0-1.3); Monocytes % 3.4 %; Neutrophils # 3.4 K/mcL (1.6-8.9); Platelet Count 288 K/mcL (140-400); Red Blood Count 4.27 M/mcL (4.19-5.50); Red Cell Distribution Width 14.5 % (11.5-14.5); Segmented Neutrophils % 22.1 %
[2018-11-21 07:05] LABS: BUN/Creatinine Ratio 27 (6-26); Blood Urea Nitrogen 13 mg/dL (8-23); Calcium 9.4 mg/dL (8.6-10.3); Carbon Dioxide 24 mEq/L (23-29); Chloride 108 mEq/L (98-107); Glucose 120 mg/dL (70-105); Osmolality,Calculated 293 (280-300); Sodium 141 mEq/L (136-145); eGFR For Non-African Americans > 60 (> 60)
[2018-11-21 07:53] LABS: Platelet Estimate Normal (Normal); Reactive Lymphocytes Present (Not Present); Smudge Cells Present (Not Present)
[2018-11-21] MEDS: Insulin LISPRO 300 UNITS/3 ML VIAL SQ SCH ×4 (08:08→20:53)
[2018-11-21 11:02] LABS: C-Reactive Protein 14 mg/L (Less than 10)
[2018-11-21] MEDS ORDERED: Isovue-370 500 ML BOTTLE IVP ONE (11:05)
[2018-11-21] MEDS: Ziprasidone 20 MG CAPSULE PO SCH ×2 (12:15→18:43)
[2018-11-21] MEDS: Isosorbide MONOnitrate (24 HR) 30 MG TAB.ER.24H PO SCH (12:15)
[2018-11-21] MEDS: lamoTRIgine 100 MG TABLET PO SCH (12:15)
[2018-11-21] MEDS: Aspirin 81 MG TAB.CHEW PO SCH (12:15)
[2018-11-21] MEDS: Cholecalciferol (D-3) 1,000 UNIT TABLET PO SCH (12:15)
[2018-11-21] MEDS: Lactulose Oral Soln 20 GM/30 ML UDC PO SCH ×2 (12:15→20:53)
[2018-11-21] MEDS: Metoprolol XL (24 HR) Succ 25 MG TAB.ER.24H PO SCH (12:15)
[2018-11-21] MEDS: cefTRIAXone 1,000 MG in Water for inj. (sterile) 20 ML 10 ML IVP SCH ×2 (12:16→14:09)
[2018-11-21] MEDS: amLODIPine 5 MG TABLET PO SCH (12:16)
--- NOTE | 2018-11-21 12:23 | Internal Med Progress Note ---
Hospitalist Progress Note - Encounter Date of Encounter: 11/21/18 Time of Encounter: 09:40 - Subjective Interval History: No acute events overnight. Leukocytosis continues to trend down. No fever/chills, nausea/vomiting, or flank pain. L foot XR did show possible OM changes on the plantar aspect of L calcaneus. - Exam Vitals: Temp Pulse Resp BP Pulse Ox 99.1 F 82 16 136/63 97 11/21/18 07:03 11/21/18 07:03 11/21/18 07:03 11/21/18 07:03 11/21/18 07:03 Exam: General: Alert, mumbled speech. not in acute distress. Cardiovascular:Normal S1 & S2, No JVD. Pulse regular. Lungs: clear to auscultation, no wheezes/rales Abdomen:Soft, non-tender, no rigidity. : Suprapubic catheter draining cloudy urine. No CVA tenderness Extremities: decubitus ulcer noted on L heel without evidence of surrounding infection Neurological: grossly non-focal - Assessment and Plan (1) Fall Current Visit: Yes Status: Acute Assessment and Plan: appears to be mechanical in nature in the setting of infection CT -ve for traumatic sequelae tx infection as below (2) Complicated UTI (urinary tract infection) Current Visit: Yes Status: Acute Assessment and Plan: presented after an episode of fall persistent leukocytosis of 19 but it appears to have improved from 11/16-13 when it was above 20 reportedly on unasyn at the [place] nursing facility sensitivities from urine culture on 11/02 reviewed US retroperitoneum unremarkable ID input appreciated, continue IV Rocephin (tolerated unasyn despite reported allergy to augmentin) (3) Osteomyelitis Current Visit: Yes Status: Suspected Assessment and Plan: Known decubitus ulcer over L heel XR yesterday showed large soft tissue ulceration as well as questionable erosion along the plantar aspect of the posterior calcaneus. ESR/CRP mildly elevated Unable to verify the presence of metal objects, will proceed with CT first (4) Dehydration Current Visit: Yes Status: Resolved Assessment and Plan: improved with IVF (5) Hyperglycemia Current Visit: Yes Status: Resolved Assessment and Plan: History of diabetes, glycemic control likely aggravated by ongoing infection. levemir 10U BID, continue moderate dose sliding scale ADA diet (6) Hypernatremia Current Visit: Yes Status: Resolved Assessment and Plan: due to lack of water intake improved with 0.45% saline (7) CAD (coronary artery disease) Current Visit: Yes Status: Chronic Assessment and Plan: resume home meds (8) DVT prophylaxis Current Visit: Yes Status: Acute Assessment and Plan: SQ heparin - Time Spent with Patient Total time spent is greater than 50% in coordination of care (as documented) at patient's floor/unit and/or counseling patient: Internal Medicine: Result - Labs CBC & Chem 7: 11/21/18 06:25 11/21/18 06:25 Labs: Short CBC 11/21/18 Range/Units 06:25 WBC 15.4 H (4.3-11.1) K/mcL Hgb 12.1 L (12.9-16.9) g/dL Hct 39.3 (37.5-50.1) % Plt Count 288 (140-400) K/mcL Neutrophils # 3.4 (1.6-8.9) K/mcL BMP 11/21/18 06:25 Sodium 141 Potassium 4.0 Chloride 108 H Carbon Dioxide 24 BUN 13 Creatinine 0.49 L Glucose 120 H Calcium 9.4 - Impressions Impressions Foot X-Ray 11/20/18 13:24 IMPRESSION: 1. Large deep soft tissue ulceration over the posterior aspect of the heel. 2. Questionable erosion along the plantar aspect of the posterior calcaneus. Further evaluation could be obtained with MRI as clinically indicated. D/ / Chester Stuart MD / Chester Stuart MD Interpreting Provider: Chester Stuart MD Retroperitoneum Ultrasound 11/20/18 15:00 IMPRESSION: 1. Normal appearance of the bilateral kidneys. No hydronephrosis. 2. Suprapubic catheter in place with approximately 138 cc of urine in the bladder lumen. D/ / Chester Stuart MD / Chester Stuart MD Interpreting Provider: Chester Stuart MD Consult Discharge Plan - Plan [facility]errals: [facility] [Primary Care Provider] - (1) Fall Qualifiers: Encounter type: initial encounter Qualified Code(s): W19.XXXA - Unspecified fall, initial encounter (3) Osteomyelitis Qualifiers: Osteomyelitis type: unspecified type Osteomyelitis location: foot Laterality: left Qualified Code(s): M86.9 - Osteomyelitis, unspecified (7) CAD (coronary artery disease) Qualifiers: Coronary Disease-Associated Artery/Lesion type: unspecified vessel or lesion type [place] vs. transplanted heart: [place] heart Associated angina: without angina Qualified Code(s): I25.10 - Atherosclerotic heart disease of [place] coronary artery without angina pectoris
[2018-11-21] MEDS ORDERED: *HR* Labetalol 20 MG/4 ML SYRINGE IVP PRN ×2 (13:21→13:33)
[2018-11-21] MEDS ORDERED: Ondansetron 4 MG/2 ML VIAL IVP PRN (13:22)
[2018-11-21] MEDS: Ondansetron 4 MG/2 ML VIAL IVP PRN (14:09)
[2018-11-21] MEDS: Insulin DETEMIR 100 UNIT/ML X5UNITS SQ SCH ×2 (14:10→20:53)
[2018-11-21] MEDS: 0.9 % Sodium Chloride 1,000 ML IVC SCH (18:26)
[2018-11-21] MEDS: Latanoprost 2.5 ML BOTTLE BOTH EYES SCH (20:49)
--- NOTE | 2018-11-21 21:05 | Electrocardiograph Report ---
[place] [id number] Test Date: 2018-11-19 Pat Name: Jim Haynes Department: [id number] Room: 3A21 Gender: M [employer]: : 1950 Requested By: Ronny Luong Order Number: [id number] Reading MD: Howie Viera Measurements Intervals [place] Rate: 83 P: 39 [place]: 150 QRS: -31 QRSD: 94 T: -11 QT: 405 QTc: 476 Interpretive Statements Sinus rhythm Left axis deviation Inferior infarct, age indeterminate Poor R-wave progression Electronically Signed On 11-21-2018 21:03:36 EST by Howie Viera
[2018-11-22] MEDS ORDERED: diazePAM 10 MG/2 ML SYRINGE IVP ONE (02:03)
[2018-11-22] MEDS: *HR* Heparin 5,000 UNIT/ML VIAL SQ SCH ×2 (05:41→18:33)
[2018-11-22 08:34] LABS: Basophils % 0.3 %; Eosinophils # 0.2 K/mcL (0.0-0.6); Eosinophils % 1.1 %; Hematocrit 34.5 % (37.5-50.1); Hemoglobin 10.8 g/dL (12.9-16.9); Immature Granulocytes % 0.4 % (0-4); Lymphocytes % 66.9 %; Mean Corpuscular HGB Conc 31.3 g/dL (31.6-35.5); Mean Corpuscular Hemoglobin 28.7 pg (28.0-33.3); Mean Corpuscular Volume 91.8 fL (83.0-100.0); Mean Platelet Volume 10.1 fL (9.4-12.4); Monocytes # 0.5 K/mcL (0.0-1.3); Monocytes % 3.3 %; Platelet Count 305 K/mcL (140-400); Red Blood Count 3.76 M/mcL (4.19-5.50); Red Cell Distribution Width 14.6 % (11.5-14.5)
[2018-11-22] MEDS: Insulin LISPRO 300 UNITS/3 ML VIAL SQ SCH ×4 (08:36→21:52)
[2018-11-22 08:39] LABS: Lymphocytes # 9.6 K/mcL (0.6-4.6)
[2018-11-22 08:47] LABS: BUN/Creatinine Ratio 26 (6-26); Blood Urea Nitrogen 12 mg/dL (8-23); Calcium 9.2 mg/dL (8.6-10.3); Carbon Dioxide 25 mEq/L (23-29); Chloride 105 mEq/L (98-107); Glucose 164 mg/dL (70-105); Osmolality,Calculated 287 (280-300); Potassium 4.1 mEq/L (3.5-5.1); Sodium 137 mEq/L (136-145); eGFR For Non-African Americans > 60 (> 60)
[2018-11-22 08:57] LABS: Reactive Lymphocytes Present (Not Present); Smudge Cells Present (Not Present)
[2018-11-22] MEDS: Ondansetron 4 MG/2 ML VIAL IVP PRN ×2 (09:51→17:04)
[2018-11-22] MEDS: cefTRIAXone 1,000 MG in Water for inj. (sterile) 20 ML 10 ML IVP SCH (09:52)
[2018-11-22] MEDS: lamoTRIgine 100 MG TABLET PO SCH (11:21)
[2018-11-22] MEDS: Aspirin 81 MG TAB.CHEW PO SCH (11:21)
[2018-11-22] MEDS: amLODIPine 5 MG TABLET PO SCH (11:21)
[2018-11-22] MEDS: Ziprasidone 20 MG CAPSULE PO SCH ×2 (11:21→17:47)
[2018-11-22] MEDS: Lactulose Oral Soln 20 GM/30 ML UDC PO SCH ×2 (11:21→21:53)
[2018-11-22] MEDS: Metoprolol XL (24 HR) Succ 25 MG TAB.ER.24H PO SCH (11:21)
[2018-11-22] MEDS: Cholecalciferol (D-3) 1,000 UNIT TABLET PO SCH (11:21)
[2018-11-22] MEDS: Isosorbide MONOnitrate (24 HR) 30 MG TAB.ER.24H PO SCH (11:21)
[2018-11-22] MEDS ORDERED: Haloperidol Lactate 5 MG/ML VIAL IVP ONE (11:47)
--- NOTE | 2018-11-22 12:05 | Internal Med Progress Note ---
Hospitalist Progress Note - Encounter Date of Encounter: 11/22/18 Time of Encounter: 10:15 - Subjective Interval History: Appears to be agitated at times although currently alert and calm. Leukocytosis continues to improve. No fever/chills, nausea/vomiting, or flank pain. L foot CT showed evidence of left calcaneal OM as well as 1.9 x 0.7 x 1.1cm abscess. - Exam Vitals: Temp Pulse Resp BP Pulse Ox 98.4 F 73 16 171/66 98 11/22/18 08:28 11/22/18 08:28 11/22/18 08:28 11/22/18 08:28 11/22/18 08:28 Exam: General: Alert, mumbled speech. not in acute distress. Cardiovascular:Normal S1 & S2, No JVD. Pulse regular. Lungs: clear to auscultation, no wheezes/rales Abdomen:Soft, non-tender, no rigidity. : Suprapubic catheter draining relatively clear urine. No CVA tenderness Extremities: decubitus ulcer noted on L heel without evidence of surrounding infection Neurological: grossly non-focal - Assessment and Plan (1) Complicated UTI (urinary tract infection) Current Visit: Yes Status: Acute Assessment and Plan: presented after an episode of fall and persistent leukocytosis of 19 but it appears to have improved from 11/16- when it was above 20 reportedly on unasyn at the [place] nursing facility, sensitivities from urine culture on 11/02 reviewed WBC continues to trend down on IV ROcephin urine culture came back P. sen to cefepime, Cipro, Levaquin, and Zosyn will switch abx to Cefepime US retroperitoneum unremarkable follow with ID (2) Osteomyelitis Current Visit: Yes Status: Acute Assessment and Plan: Known decubitus ulcer over L heel ESR/CRP mildly elevated XR showed large soft tissue ulceration as well as questionable erosion along the plantar aspect of the posterior calcaneus. CT showed left calcaneal osteomyelitis as well as small abscess at the plantar aspect of the posterior calcaneus discussed with ID over the phone; pt is hemodynamically stable with improving WBC and there is no urgent need to add any further abx for it discussed and placed consult to podiatry (3) Abscess Current Visit: Yes Status: Acute Assessment and Plan: as above (4) Fall Current Visit: Yes Status: Acute Assessment and Plan: appears to be mechanical in nature in the setting of infection CT head and cervical spine-ve for traumatic sequelae tx infection as below (5) Dehydration Current Visit: Yes Status: Resolved Assessment and Plan: improved with IVF Encourage oral intake (6) Hyperglycemia Current Visit: Yes Status: Resolved Assessment and Plan: History of diabetes, glycemic control likely aggravated by ongoing infection. Improved with levemir 10U BID and moderate dose sliding scale. COntinue ADA diet (7) Hypernatremia Current Visit: Yes Status: Resolved Assessment and Plan: due to lack of water intake Resolved with 0.45% saline (8) CAD (coronary artery disease) Current Visit: Yes Status: Chronic Assessment and Plan: resume home meds (9) DVT prophylaxis Current Visit: Yes Status: Acute Assessment and Plan: SQ heparin - Time Spent with Patient Total time spent is greater than 50% in coordination of care (as documented) at patient's floor/unit and/or counseling patient: Plan of Care Discussed with: patient (Discussed with RN) Internal Medicine: Result - Labs CBC & Chem 7: 11/22/18 08:18 11/22/18 08:18 Labs: Short CBC 11/22/18 Range/Units 08:18 WBC 14.3 H (4.3-11.1) K/mcL Hgb 10.8 L (12.9-16.9) g/dL Hct 34.5 L (37.5-50.1) % Plt Count 305 (140-400) K/mcL Neutrophils # 4.0 (1.6-8.9) K/mcL BMP 11/22/18 08:18 Sodium 137 Potassium 4.1 Chloride 105 Carbon Dioxide 25 BUN 12 Creatinine 0.47 L Glucose 164 H Calcium 9.2 - Impressions Impressions Foot CT 11/21/18 11:05 IMPRESSION: 1. Large erosion of the plantar aspect of the posterior calcaneus. Underlying sclerosis extending into the mid calcaneal body. Findings are compatible with osteomyelitis. If clinically indicated further evaluation could be obtained with MRI. 2. Large deep soft tissue ulceration posterior to the calcaneus. Suspected underlying abscess plantar to the posterior calcaneus measuring approximately 1.9 x 0.7 x 1.1 cm. D/ / Chester Stuart MD / Chester Stuart MD Interpreting Provider: Chester Stuart MD Consult Discharge Plan - Plan Referrals: [facility] [Primary Care Provider] - (2) Osteomyelitis Qualifiers: Osteomyelitis type: unspecified type Osteomyelitis location: foot Laterality: left Qualified Code(s): M86.9 - Osteomyelitis, unspecified (4) Fall Qualifiers: Encounter type: initial encounter Qualified Code(s): W19.XXXA - Unspecified fall, initial encounter (8) CAD (coronary artery disease) Qualifiers: Coronary Disease-Associated Artery/Lesion type: unspecified vessel or lesion type [place] vs. transplanted heart: [place] heart Associated angina: without angina Qualified Code(s): I25.10 - Atherosclerotic heart disease of [place] coronary artery without angina pectoris
[2018-11-22] MEDS: Insulin DETEMIR 100 UNIT/ML X5UNITS SQ SCH ×2 (13:21→21:53)
--- NOTE | 2018-11-22 14:29 | Podiatry Consult Note ---
Date of Encounter: 11/22/18 Time of Encounter: 14:26 Assessment and Plan (1) Ulcer of left heel Current visit: Yes Status: Acute Assessment: I observe 3 cm x 3 cm ulceration posterior aspect left calcaneus with us by pressure complicated by diabetes that is without purulent drainage. There is no evidence of active infection at this time. No fluctuance necrosis purulence cellulitis lymphangitis odor. Wound edges are attached. No cellulitis lymphangitis. No undermining sinus tract or tunneling. On removing the dressing today I do not see any purulent drainage. There is a slight amount of serosanguineous drainage only. Plan: #1 we will likely explore the wound with sterile instrumentation tomorrow, to determinate if there is a abscess on the plantar aspect calcaneus. I placed a Allevyn foam dressing to ensure that all pressures relieved off the foot and we will examine foot tomorrow and the amount of drainage over 16 hours. If the patient does not active osteomyelitis from a clinical standpoint and certainly can be treated with oral antibiotics long-term and local wound care. Aggressive debridement at this juncture would not be beneficial from my standpoint unless as a source/nidus of ongoing infection for this patient. We will continue local wound care. We can culture the wound tomorrow if indicated Qualifiers: Non-pressure ulcer stage: with fat layer exposed Qualified Code(s): L97.422 - Non-pressure chronic ulcer of left heel and midfoot with fat layer exposed History of Present Illness Chief complaint: Pressure ulcer left calcaneus HPI: Mr. Haynes is a 68 year old male admitted for likely urinary tract infection. I am asked to see this patient concerning a chronic ulceration the posterior aspect left calcaneus. Long-term decubitus. Concern for possible osteomyelitis per CT scan. 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 suprapubic cath - Social History Smoking Status: Never smoker Smokeless Tobacco Status: No Alcohol use: none Drug use: none Medications and Allergies Acetaminophen [Tylenol] 650 mg PO Q6HR PRN 02/15/19 [History] Aspirin 81 mg PO DAILY 11/20/18 [History] Atorvastatin [Lipitor] 20 mg PO HS 11/20/18 [History] Bacitracin OINT PKT [Ak-Tracin] 1 appl TP DAILY 11/20/18 [History] Bisacodyl [Dulcolax] 10 mg PRIME MOWEFR 11/20/18 [History] Brimonidine 0.2% [Alphagan] 1 drop BOTH EYES BID 11/20/18 [History] Cholecalciferol (D-3) [Vitamin D] 1,000 units PO DAILY 11/20/18 [History] Clopidogrel [Plavix] 75 mg PO DAILY 11/20/18 [History] Insulin Glargine,Hum.rec.anlog [Basaglar Kwikpen U-100] 31 unit SQ QAM 11/20/18 [History] Insulin LISPRO [Humalog] 4 unit SQ TIDWM 11/20/18 [History] Isosorbide MONOnitrate (24 HR) [Imdur] 30 mg PO DAILY 11/20/18 [History] Lactulose [Enulose] 20 gm PO BID 11/20/18 [History] Losartan [Cozaar] 50 mg PO DAILY 11/20/18 [History] Magnesium Hydroxide [Milk of Magnesia] 30 ml PO DAILY PRN 11/20/18 [History] Metoprolol Succinate [Toprol Xl] 25 mg PO DAILY 11/20/18 [History] Multivitamin [One Daily Multivitamin] 1 tab PO DAILY 11/20/18 [History] Ondansetron [Zofran] 4 mg IVP Q4H PRN 11/20/18 [History] Pantoprazole Sodium [Protonix] 40 mg PO DAILY 11/20/18 [History] Polyethylene Glycol 3350 [MiraLAX] 17 gm PO DAILY 11/20/18 [History] Tramadol HCl [Ultram] 50 mg PO TID PRN 11/20/18 [History] Travoprost [Travatan Z] 1 drop BOTH EYES HS 11/20/18 [History] Ziprasidone HCl [Geodon] 60 mg PO BIDWM 11/20/18 [History] amLODIPine [Norvasc] 10 mg PO DAILY 11/20/18 [History] lamoTRIgine [Lamotrigine] 150 mg PO DAILY 11/20/18 [History] metFORMIN [Glucophage] 850 mg PO TIDWM 11/20/18 [History] Allergy/AdvReac Type Severity Reaction Status Date / Time Amoxicillin Allergy Anaphylaxis Verified 07/09/16 17:38 clavulanic acid Allergy Anaphylaxis Verified 07/09/16 17:38 All Systems Reviewed: The remainder of the systems were reviewed and are negative Review of systems: Patient presently is without fever nausea vomiting chills shortness of breath Physical Exam - Constitutional Vitals: Temp Pulse Resp BP Pulse Ox 97.4 F L 91 16 113/77 96 11/22/18 12:00 11/22/18 12:00 11/22/18 12:00 11/22/18 12:00 11/22/18 12:00 General appearance: average body habitus, no acute distress - Expanded Lower Extremities Exam Neuro vascular tendon exam: Present: abnormal 2-point discrimination, decreased fine/light touch, motor deficit Gait: Present: unable to bear weight - Neurological Exam Additional comments: The patient exhibits absent epicritic sensation from toes to tibia bilaterally absent vibratory sensation from toes to tibia 2 point discrimination light touch and vibration. Patient exhibits intrinsic minus with loss of muscle tone and strength, intrinsic musculature of the foot bilaterally. - Skin Skin exam: Present: dry Additional comments: I observe pressure ulcer posterior aspect left calcaneus measuring 3.2 cm in length 3. centimeters in width 0.3 cm in depth. It is 90% granulation tissue 10% fibrin. No undermining no sinus tract or tunneling. No excessive warmth. No cellulitis lymphangitis odor purulence necrosis. There is an area around the 6 o'clock position of the wound that is regular and possibly consistent with bone exposure. There is no fluctuance about the wound. Wound edges are attached. We also observe onychomycosis bilaterally. Mr. Haynes exhibits trophic changes of the skin from toes to tibia/knee as well as hyperpigmentation poor skin turgor stasis dermatitis of the skin associated with long-term diabetes/ neuropathy. - Vascular Capillary Refill: sluggish Results - Labs Result Diagrams: 11/22/18 08:18 11/22/18 08:18 Labs: Abnormal lab results WBC 14.3 K/mcL (4.3-11.1) H 11/22/18 08:18 RBC 3.76 M/mcL (4.19-5.50) L 11/22/18 08:18 Hgb 10.8 g/dL (12.9-16.9) L 11/22/18 08:18 Hct 34.5 % (37.5-50.1) L 11/22/18 08:18 MCHC 31.3 g/dL (31.6-35.5) L 11/22/18 08:18 RDW 14.6 % (11.5-14.5) H 11/22/18 08:18 Promyelocytes % 1.0 % (0) H 11/19/18 13:06 Lymphocytes # 9.6 K/mcL (0.6-4.6) H 11/22/18 08:18 Reactive Lymphocytes Present (Not Present) A 11/22/18 08:18 Smudge Cells Present (Not Present) A 11/22/18 08:18 ESR 36 mm/hr (0-10) H 11/21/18 06:25 VBG pH 7.46 pH Units (7.32-7.42) H 11/19/18 16:14 VBG pCO2 34 mmHg (41-51) L 11/19/18 16:14 VBG pO2 181 mmHg (25-50) H 11/19/18 16:14 Creatinine 0.47 mg/dL (0.70-1.30) L 11/22/18 08:18 Glucose 164 mg/dL (70-105) H 11/22/18 08:18 POC Glucose 244 mg/dL (70-99) H 11/21/18 20:46 C-Reactive Protein 14 mg/L (Less than 10) H 11/21/18 06:25 Beta-Hydroxybutyric Acd > 2.00 mmol/L (0.02-0.27) H 11/19/18 15:58 Urine Clarity Slightly Cloudy (Clear) A 11/19/18 14:44 Urine Protein 100 mg/dL (Neg-Trace) H 11/19/18 14:44 Urine Glucose (UA) 500 mg/dL (Normal) H 11/19/18 14:44 Urine Ketones >=160 mg/dL (Negative) H 11/19/18 14:44 Urine Blood Small (Negative) H 11/19/18 14:44 Urine Bilirubin Small (Negative) H 11/19/18 14:44 Ur Leukocyte Esterase Small (Negative) H 11/19/18 14:44 Urine Microscopic WBC 50-100 per hpf (0-3) H 11/19/18 14:44 Urine Yeast Many per hpf (None Seen) H 11/19/18 14:44 Ur Culture Indicated? YES (NO) A 11/19/18 14:44 H & H 11/22/18 Range/Units 08:18 Hgb 10.8 L (12.9-16.9) g/dL Hct 34.5 L (37.5-50.1) % All other labs normal. - Diagnostic results Ankle/Foot x-ray: image reviewed Ankle/Foot CT: image reviewed Consult Discharge Plan - Plan [facility]errals: [facility] [Primary Care Provider] -
[2018-11-22] MEDS: 0.9 % Sodium Chloride 1,000 ML IVC SCH (16:03)
[2018-11-22] MEDS: Cefepime HCl 1,000 MG in 0.9 % Sodium Chloride Mini Bag 100 ML IVPB SCH (17:04)
[2018-11-22] MEDS: Latanoprost 2.5 ML BOTTLE BOTH EYES SCH (21:48)
[2018-11-23] MEDS: Cefepime HCl 1,000 MG in 0.9 % Sodium Chloride Mini Bag 100 ML IVPB SCH ×2 (05:30→17:40)
[2018-11-23] MEDS: *HR* Heparin 5,000 UNIT/ML VIAL SQ SCH ×2 (05:31→17:41)
[2018-11-23 06:18] LABS: Basophils # 0.1 K/mcL (0.0-0.2); Basophils % 0.3 %; Eosinophils # 0.2 K/mcL (0.0-0.6); Eosinophils % 1.2 %; Hematocrit 39.3 % (37.5-50.1); Hemoglobin 12.2 g/dL (12.9-16.9); Immature Granulocytes % 0.4 % (0-4); Lymphocytes # 10.7 K/mcL (0.6-4.6); Lymphocytes % 63.6 %; Mean Corpuscular Hemoglobin 28.5 pg (28.0-33.3); Mean Corpuscular Volume 91.8 fL (83.0-100.0); Mean Platelet Volume 10.4 fL (9.4-12.4); Monocytes # 0.5 K/mcL (0.0-1.3); Monocytes % 3.2 %; Neutrophils # 5.3 K/mcL (1.6-8.9); Platelet Count 364 K/mcL (140-400); Red Blood Count 4.28 M/mcL (4.19-5.50); Red Cell Distribution Width 14.3 % (11.5-14.5); Segmented Neutrophils % 31.3 %
[2018-11-23 06:30] LABS: INR 1.1; Prothrombin Time 12.2 Seconds (9.4-12.1)
[2018-11-23 06:36] LABS: BUN/Creatinine Ratio 22 (6-26); Blood Urea Nitrogen 12 mg/dL (8-23); Calcium 9.5 mg/dL (8.6-10.3); Carbon Dioxide 26 mEq/L (23-29); Chloride 102 mEq/L (98-107); Glucose 282 mg/dL (70-105); Osmolality,Calculated 294 (280-300); Potassium 4.2 mEq/L (3.5-5.1); Sodium 137 mEq/L (136-145); eGFR For Non-African Americans > 60 (> 60)
[2018-11-23] MEDS ORDERED: *HR* Labetalol 20 MG/4 ML SYRINGE IVP PRN (07:52)
[2018-11-23] MEDS: Insulin LISPRO 300 UNITS/3 ML VIAL SQ SCH ×4 (09:40→21:55)
[2018-11-23] MEDS: lamoTRIgine 100 MG TABLET PO SCH (09:41)
[2018-11-23] MEDS: Ziprasidone 20 MG CAPSULE PO SCH ×2 (09:41→17:40)
[2018-11-23] MEDS: Cholecalciferol (D-3) 1,000 UNIT TABLET PO SCH (09:41)
[2018-11-23] MEDS: amLODIPine 5 MG TABLET PO SCH (09:41)
[2018-11-23] MEDS: Isosorbide MONOnitrate (24 HR) 30 MG TAB.ER.24H PO SCH (09:41)
[2018-11-23] MEDS: Insulin DETEMIR 100 UNIT/ML X5UNITS SQ SCH ×2 (09:41→21:54)
[2018-11-23] MEDS: Lactulose Oral Soln 20 GM/30 ML UDC PO SCH ×2 (09:42→21:54)
[2018-11-23] MEDS: Aspirin 81 MG TAB.CHEW PO SCH (09:42)
[2018-11-23] MEDS: Metoprolol XL (24 HR) Succ 50 MG TAB.ER.24H PO SCH (09:42)
--- NOTE | 2018-11-23 10:15 | Internal Med Progress Note ---
Hospitalist Progress Note - Encounter Date of Encounter: 11/23/18 Time of Encounter: 09:00 - Subjective Interval History: Fluctuating leukocytosis noted. Pt otherwise has no complaints and wants to know when he can be transferred back [facility]. No fever/chills, nausea/vomiting, or flank pain. Improving PO intake - Exam Vitals: Temp Pulse Resp BP Pulse Ox 97.7 F 84 15 172/72 100 11/23/18 07:10 11/23/18 07:10 11/23/18 07:10 11/23/18 07:10 11/23/18 07:10 Exam: General: Alert, mumbled speech. not in acute distress. Cardiovascular:Normal S1 & S2, No JVD. Pulse regular. Lungs: clear to auscultation, no wheezes/rales Abdomen:Soft, non-tender, no rigidity. : Suprapubic catheter draining relatively clear urine. No CVA tenderness Extremities: Left heel dressing c/d/i Neurological: grossly non-focal - Assessment and Plan (1) Complicated UTI (urinary tract infection) Current Visit: Yes Status: Acute Assessment and Plan: presented after an episode of fall and persistent leukocytosis of 19 but it appears to have improved from 11/16- when it was above 20 reportedly on unasyn at the [facility], sensitivities from urine cultu re on 11/02 reviewed urine culture at our facility came back P. sen to cefepime, Cipro, Levaquin, and Zosyn abx switched to Cefepime yesterday, continue US retroperitoneum unremarkable follow with ID (2) Osteomyelitis Current Visit: Yes Status: Acute Assessment and Plan: Known decubitus ulcer over L heel ESR/CRP mildly elevated XR showed large soft tissue ulceration as well as questionable erosion along the plantar aspect of the posterior calcaneus. CT showed left calcaneal osteomyelitis as well as small abscess at the plantar aspect of the posterior calcaneus continue abx as above for now, for ID evaluation today appreciate podiatry input, for possible wound exploration today (3) Abscess Current Visit: Yes Status: Acute Assessment and Plan: as above (4) Fall Current Visit: Yes Status: Acute Assessment and Plan: appears to be mechanical in nature in the setting of infection CT head and cervical spine-ve for traumatic sequelae tx infection as below (5) Dehydration Current Visit: Yes Status: Resolved Assessment and Plan: improved with IVF Encourage oral intake (6) Hyperglycemia Current Visit: Yes Status: Resolved Assessment and Plan: History of diabetes, glycemic control likely aggravated by ongoing infection. Increase levemir to 15U BID. Continue moderate dose sliding scale ADA diet (7) Hypernatremia Current Visit: Yes Status: Resolved Assessment and Plan: due to lack of water intake Resolved with 0.45% saline (8) CAD (coronary artery disease) Current Visit: Yes Status: Chronic Assessment and Plan: resume home meds (9) DVT prophylaxis Current Visit: Yes Status: Acute Assessment and Plan: SQ heparin - Time Spent with Patient Total time spent is greater than 50% in coordination of care (as documented) at patient's floor/unit and/or counseling patient: Plan of Care Discussed with: nurse Internal Medicine: Result - Labs CBC & Chem 7: 11/23/18 05:40 11/23/18 05:40 Labs: Short CBC 11/23/18 Range/Units 05:40 WBC 16.8 H (4.3-11.1) K/mcL Hgb 12.2 L (12.9-16.9) g/dL Hct 39.3 (37.5-50.1) % Plt Count 364 (140-400) K/mcL Neutrophils # 5.3 (1.6-8.9) K/mcL BMP 11/23/18 05:40 Sodium 137 Potassium 4.2 Chloride 102 Carbon Dioxide 26 BUN 12 Creatinine 0.55 L Glucose 282 H Calcium 9.5 - ABG Interpretation ABG results: PT/INR, D-dimer PT 12.2 Seconds (9.4-12.1) H 11/23/18 05:40 Consult Discharge Plan - Plan [facility]errals: [facility] [Primary Care Provider] - (2) Osteomyelitis Qualifiers: Osteomyelitis type: unspecified type Osteomyelitis location: foot Laterality: left Qualified Code(s): M86.9 - Osteomyelitis, unspecified (4) Fall Qualifiers: Encounter type: initial encounter Qualified Code(s): W19.XXXA - Unspecified fall, initial encounter (8) CAD (coronary artery disease) Qualifiers: Coronary Disease-Associated Artery/Lesion type: unspecified vessel or lesion type [place] vs. transplanted heart: [place] heart Associated angina: without angina Qualified Code(s): I25.10 - Atherosclerotic heart disease of [place] coronary artery without angina pectoris
--- NOTE | 2018-11-23 11:08 | Infectious Disease Progress No ---
Addendum entered and electronically signed by Erika Zimmer DO 11/23/18 15:29: Plan: -continue cefepime day 2. Will broaden coverage should GPC be present. -during podiatry I&D please get routine and anaerobic cultures Original Note: Date of Encounter: 11/23/18 Time of Encounter: 11:05 - Assessment and Plan (1) Complicated UTI (urinary tract infection) Current Visit: Yes Status: Acute Urinalysis and symptoms are concerning for UTI in setting of suprapubic catheter. -Patient reports symptoms of fever, chills, foul-smelling urine, urine leakage around super pubic catheter -He has recent admission at [facility] for UTI treated with unasyn; urinalysis on 10/29/2018 grew Klebsiella pneumoniae and Proteus Mirabilis, that had sensitivity to cefazolin, cefepime, ceftriaxone, ertapenem, imipenem, Zosyn. -Afebrile, hemodynamically stable -WBC 16.8 -respiratory infectious panel negative -Urinalysis with proteinuria, ketones, glucose, leukocyte esterase, WBC 50 to 100, yeast -11/19/2018 Blood culture x2 pending -11/19/2018 urine culture final Pseudomonas and yeast -no leakage around suprapubic catheter site and it is draining appropriately into [place] bag Plan: -will discuss antibiotic regimen with Dr. Knapp since the urine culture sensitivity is finalized -patient currently on cefepime day 2 -await the blood culture results (2) Ulcer of left heel Current Visit: Yes Status: Acute Patient presented with ulcer on left heel -does not appear infected at this time -left heel ulcer that has a little purulent around edge but clean base through subcutaneous tissue measuring 5 x 4 cm. -ESR 36 -CRP 14 -wound culture final negative for growth -foot x-ray demonstrated large deep soft tissue ulceration on heal -foot CT demonstrated large erosion on plantar surface. Sclerosis suggestive of osteomyelitis. Abscess plantar to the posterior calcaneus measuring 1.9 x 0.7 x 1.1 cm plan: -continue abx as above -podiatry following command will perform a sterile examination of the heel to evaluate for osteomyelitis today Qualifiers: Non-pressure ulcer stage: with fat layer exposed Qualified Code(s): L97.422 - Non-pressure chronic ulcer of left heel and midfoot with fat layer exposed - Subjective Interval history: Upon examination the patient is sitting up in bed comfortably. He reports improvement and suprapubic pain. He denied fever, chills, chest pain, shortness of breath, abdominal pain, dysuria. He is requesting water. He has no other complaints. Infect Dis PN-Objective Data - Labs CBC & Chem 7: 11/23/18 05:40 11/23/18 05:40 Labs: Laboratory Results - last 24 hr 11/22/18 11/22/18 11/22/18 08:24 11:32 16:10 WBC RBC Hgb Hct MCV MCH MCHC RDW Plt Count MPV Immature Gran % Seg Neutrophils % Lymphocytes % Monocytes % Eosinophils % Basophils % Neutrophils # Lymphocytes # Monocytes # Eosinophils # Basophils # PT INR Sodium Potassium Chloride Carbon Dioxide BUN Creatinine Est GFR ( Amer) Est GFR (Non-Af Amer) BUN/Creatinine Ratio Glucose POC Glucose 135 H 154 H 291 H Calculated Osmolality Calcium 11/22/18 11/23/18 11/23/18 20:28 05:20 05:40 WBC 16.8 H RBC 4.28 Hgb 12.2 L Hct 39.3 MCV 91.8 MCH 28.5 MCHC 31.0 L RDW 14.3 Plt Count 364 MPV 10.4 Immature Gran % 0.4 Seg Neutrophils % 31.3 Lymphocytes % 63.6 Monocytes % 3.2 Eosinophils % 1.2 Basophils % 0.3 Neutrophils # 5.3 Lymphocytes # 10.7 H Monocytes # 0.5 Eosinophils # 0.2 Basophils # 0.1 PT INR Sodium Potassium Chloride Carbon Dioxide BUN Creatinine Est GFR ( Amer) Est GFR (Non-Af Amer) BUN/Creatinine Ratio Glucose POC Glucose 355 H 230 H Calculated Osmolality Calcium 11/23/18 11/23/18 05:40 05:40 WBC RBC Hgb Hct MCV MCH MCHC RDW Plt Count MPV Immature Gran % Seg Neutrophils % Lymphocytes % Monocytes % Eosinophils % Basophils % Neutrophils # Lymphocytes # Monocytes # Eosinophils # Basophils # PT 12.2 H INR 1.1 Sodium 137 Potassium 4.2 Chloride 102 Carbon Dioxide 26 BUN 12 Creatinine 0.55 L Est GFR ( Amer) > 60 Est GFR (Non-Af Amer) > 60 BUN/Creatinine Ratio 22 Glucose 282 H POC Glucose Calculated Osmolality 294 Calcium 9.5 Cultures: Cultures 11/20/18 14:00 Wound Culture - Final Left Foot No growth. 11/19/18 14:44 Urine Culture - Final Urine,Clean Catch Pseudomonas aeruginosa Yeast Species 11/19/18 16:10 Blood Culture - Preliminary Peripheral Venipuncture Culture is incubating and being continuously monitored for growth. Final report to follow. 11/19/18 16:10 Blood Culture - Preliminary Peripheral Venipuncture Culture is incubating and being continuously monitored for growth. Final report to follow. Serology 11/20/18 11/19/18 Range/Units 14:00 14:44 Urine Color Yellow (Yellow) Urine Clarity Slightly Cloudy A (Clear) Urine pH 5.5 (5.0-8.0) pH Units Ur Specific [place] 1.020 (1.010-1.025) Urine Protein 100 H (Neg-Trace) mg/dL Urine Glucose (UA) 500 H (Normal) mg/dL Urine Ketones >=160 H (Negative) mg/dL Urine Blood Small H (Negative) Urine Nitrite Negative (Negative) Urine Bilirubin Small H (Negative) Urine Urobilinogen Normal (Normal) mg/dL Ur Leukocyte Esterase Small H (Negative) Urine Microscopic RBC 0-3 (0-3) per hpf Urine Microscopic WBC 50-100 H (0-3) per hpf Ur Squamous Epith Cells Few (None-Few) per lpf Urine Yeast Many H (None Seen) per hpf Ur Culture Indicated? YES A (NO) Chlamy pneumoniae PCR Not Detected (Not Detect) Adenovirus (PCR) Not Detected (Not Detect) B. pertussis DNA (PCR) Not Detected (Not Detect) B.parapertussis DNA PCR Not Detected (Not Detect) Coronavirus OC43 (PCR) Not Detected (Not Detect) Coronavirus HKU1 (PCR) Not Detected (Not Detect) Coronavirus 229E (PCR) Not Detected (Not Detect) Coronavirus NL63 (PCR) Not Detected (Not Detect) Human Metapneumovir PCR Not Detected (Not Detect) Influenza A (H1) PCR Not Detected (Not Detect) Influ A (H1N1/09) PCR Not Detected (Not Detect) Influenza A (H3) PCR Not Detected (Not Detect) Influenza A Untype (PCR) Not Detected (Not Detect) Influenza Type B (PCR) Not Detected (Not Detect) M.pneumoniae DNA (PCR) Not Detected (Not Detect) Parainfluenza 1 (PCR) Not Detected (Not Detect) Parainfluenza 2 (PCR) Not Detected (Not Detect) Parainfluenza 3 (PCR) Not Detected (Not Detect) Parainfluenza 4 (PCR) Not Detected (Not Detect) RSV (PCR) Not Detected (Not Detect) Entero/Rhino (PCR) Not Detected (Not Detect) Exam - Constitutional Vitals: Temp Pulse Resp BP Pulse Ox 98.0 F 80 14 155/62 99 11/23/18 10:08 11/23/18 10:08 11/23/18 10:08 11/23/18 10:08 11/23/18 10:08 Exam: Gen.: Vitals noted. No acute distress. alert and oriented HEENT: oropharynx clear, Normocephalic, atraumatic Neck: Supple. No adenopathy. Cardiac: RRR, no murmur, +S1/S2 Pulmonary: CTA bilaterally, no wheezes, rales or rhonchi, equal chest expansion Abdomen: soft, suprapubic tender, Bowel sounds noted, no guarding, suprapubic catheter skin: left heel ulcer that has a little purulent around edge but clean base through subcutaneous tissue measuring 5 x 4 cm. Extremities: no BLE edema, nontender calf Neuro: alert and oriented, moves all extremities Psych: appropriate mood and behavior Consult Discharge Plan - Plan [facility]errals: [facility] [Primary Care Provider] - - Attending Attestation I examined this patient and my medical decision-making was reviewed with the Resident Physician. I agree with the documented findings, disposition and treatment plan as described except to the extent set forth below. complicated UTI causative organism Proteus, klebsiella and pansenstivie Pseudomonas aeruginosa concern for possible foot abscess and [id number] of the left side - going for I&D today by Dr. Yu please send intra op cultures for routine, anaerobic will broaden antibiotics coverage if GPC isolation from the wound
[2018-11-23] MEDS: 0.9 % Sodium Chloride 1,000 ML IVC SCH (11:23)
--- NOTE | 2018-11-23 15:48 | Podiatry Progress Note ---
Date of Encounter: 11/24/18 Time of Encounter: 15:20 - Assessment and Plan (1) Ulcer of left heel Current Visit: Yes Status: Acute Assessment: Skin cool from toes to tibia Cap refill sluggish Absent protective sensation Pressure ulcer left calcaneus, no odor, no streaking, no tunneling, wound edges attached except for 1.2cm undermining noted at 6 o'clock position, wound margins and wound palpated and no fluctuance noted to indicate abscess, no purulent drainage Minimal serosang drainage noted to Allevyn dressing Wound culture from 11/10/18 final, no growth Blood cultures preliminary CRP 14 ESR 36 Plan: Wound flushed with .9NS Patted dry and covered with Allevyn dressing Bilateral lower extremities placed back in heel medix boots, patient to continue to wear at all times while in bed Patient may resume diet Will continue to monitor Qualifiers: Qualified Code(s): L97.422 - Non-pressure chronic ulcer of left heel and midfoot with fat layer exposed Subjective Interval history: Patient is sleeping upon entering room, aroused easily with verbal stimulation. He is oriented to name, date of , and year. He is confused to place and month and needs reoriented to where he is on several occasions. Patient thinks he is at the [facility]. He denies any chest pain, shortness of breath, or calf pain. He denies any fever, chills, nausea, vomiting, or diarrhea. Objective - Vital Signs Vital Signs: Vital Signs Temp Pulse Resp BP Pulse Ox 11/23/18 14:02 97.9 F 65 15 107/56 98 11/23/18 10:08 98.0 F 80 14 155/62 99 11/23/18 07:10 97.7 F 84 15 172/72 100 11/23/18 04:27 97.6 F 84 14 166/69 100 11/22/18 19:34 97.6 F 84 14 148/70 97 11/22/18 16:50 146/61 11/22/18 16:42 97.8 F 87 16 180/66 90 Intake and Output 11/22/18 11/23/18 11/23/18 23:59 07:59 15:59 Intake Total 540 / 540 220 / 220 Output Total 1150 / 1150 1100 / 1100 500 / 500 Balance -610 / -610 -880 / -880 -500 / -500 Intake: IV Fluids 100 / 100 100 / 100 Maxipime 1,000 MG In 0.9 % 100 / 100 100 / 100 Sodium Chloride (Mini-Bag +) 100 ML @ 200 mls/hr IVPB Q12HR [facility] Rx#:[id number] Oral 440 / 440 120 / 120 Output: Catheter 1150 / 1150 1100 / 1100 500 / 500 Suprapubic 500 / 500 Other: Meal Dinner npo Percent of Meal Consumed 20% # Bowel Movements 0 # Bowel Movement Diapers 0 Weight 74.6 kg Blood Glucose* 355 230 Patient Weight 11/23/18 23:59 Weight 74.6 kg - Exam Exam: Constitutional: Patient sleeping, aroused with verbal stimuli easily, oriented to name, , and year Vascular: skin cool from toes to tibia, no calf pain with squeeze, cap refill sluggish Neurological: sensation diminished, proprioception absent Dermatological: Pressure ulcer noted posterior calcaneus, edges attached except at 6 o'clock position there is undermining noted 1.2 cm, no evidence of abscess, no purulent drainage, no odor, no streaking Musculoskeletal: muscle tone absent bilateral feet and legs, weakness noted lower extremities - Lab Result Diagrams: 11/24/18 03:16 11/24/18 03:16 Labs: Abnormal lab results WBC 16.8 K/mcL (4.3-11.1) H 11/23/18 05:40 Hgb 12.2 g/dL (12.9-16.9) L 11/23/18 05:40 MCHC 31.0 g/dL (31.6-35.5) L 11/23/18 05:40 Promyelocytes % 1.0 % (0) H 11/19/18 13:06 Lymphocytes # 10.7 K/mcL (0.6-4.6) H 11/23/18 05:40 Reactive Lymphocytes Present (Not Present) A 11/22/18 08:18 Smudge Cells Present (Not Present) A 11/22/18 08:18 ESR 36 mm/hr (0-10) H 11/21/18 06:25 PT 12.2 Seconds (9.4-12.1) H 11/23/18 05:40 VBG pH 7.46 pH Units (7.32-7.42) H 11/19/18 16:14 VBG pCO2 34 mmHg (41-51) L 11/19/18 16:14 VBG pO2 181 mmHg (25-50) H 11/19/18 16:14 Creatinine 0.55 mg/dL (0.70-1.30) L 11/23/18 05:40 Glucose 282 mg/dL (70-105) H 11/23/18 05:40 POC Glucose 230 mg/dL (70-99) H 11/23/18 05:20 C-Reactive Protein 14 mg/L (Less than 10) H 11/21/18 06:25 Beta-Hydroxybutyric Acd > 2.00 mmol/L (0.02-0.27) H 11/19/18 15:58 Urine Clarity Slightly Cloudy (Clear) A 11/19/18 14:44 Urine Protein 100 mg/dL (Neg-Trace) H 11/19/18 14:44 Urine Glucose (UA) 500 mg/dL (Normal) H 11/19/18 14:44 Urine Ketones >=160 mg/dL (Negative) H 11/19/18 14:44 Urine Blood Small (Negative) H 11/19/18 14:44 Urine Bilirubin Small (Negative) H 11/19/18 14:44 Ur Leukocyte Esterase Small (Negative) H 11/19/18 14:44 Urine Microscopic WBC 50-100 per hpf (0-3) H 11/19/18 14:44 Urine Yeast Many per hpf (None Seen) H 11/19/18 14:44 Ur Culture Indicated? YES (NO) A 11/19/18 14:44 Microbiology, Last 48 Hours 11/20/18 14:00 Wound Culture - Final Left Foot No growth. 11/19/18 14:44 Urine Culture - Final Urine,Clean Catch Pseudomonas aeruginosa Yeast Species Consult Discharge Plan - Plan [facility]: [facility] [Primary Care Provider[facility] -
[2018-11-23] MEDS: Latanoprost 2.5 ML BOTTLE BOTH EYES SCH (21:55)
[2018-11-24] MEDS ORDERED: diazePAM 10 MG/2 ML SYRINGE IVP ONE (03:06)
[2018-11-24 03:41] LABS: Hematocrit 37.3 % (37.5-50.1); Hemoglobin 11.8 g/dL (12.9-16.9); Mean Corpuscular HGB Conc 31.6 g/dL (31.6-35.5); Mean Corpuscular Hemoglobin 28.8 pg (28.0-33.3); Mean Platelet Volume 10.2 fL (9.4-12.4); Platelet Count 310 K/mcL (140-400); Red Cell Distribution Width 14.6 % (11.5-14.5)
[2018-11-24 04:00] LABS: BUN/Creatinine Ratio 24 (6-26); Blood Urea Nitrogen 13 mg/dL (8-23); Calcium 9.1 mg/dL (8.6-10.3); Carbon Dioxide 23 mEq/L (23-29); Chloride 104 mEq/L (98-107); Glucose 220 mg/dL (70-105); Osmolality,Calculated 291 (280-300); Potassium 4.3 mEq/L (3.5-5.1); Sodium 137 mEq/L (136-145); eGFR For Non-African Americans > 60 (> 60)
[2018-11-24 04:05] LABS: Eosinophils # 1.3 K/mcL (0.0-0.6); Lymphocytes # 9.2 K/mcL (0.6-4.6); Monocytes # 0.3 K/mcL (0.0-1.3); Neutrophils # 5.6 K/mcL (1.6-8.9); Reactive Lymphocytes Present (Not Present)
[2018-11-24 04:06] LABS: Platelet Estimate Normal (Normal)
[2018-11-24] MEDS: *HR* Heparin 5,000 UNIT/ML VIAL SQ SCH ×2 (05:24→17:45)
[2018-11-24] MEDS: Cefepime HCl 1,000 MG in 0.9 % Sodium Chloride Mini Bag 100 ML IVPB SCH (05:24)
[2018-11-24] MEDS: Insulin LISPRO 300 UNITS/3 ML VIAL SQ SCH ×4 (07:29→20:54)
[2018-11-24] MEDS: Ziprasidone 20 MG CAPSULE PO SCH ×2 (07:32→17:01)
[2018-11-24] MEDS: amLODIPine 5 MG TABLET PO SCH (07:32)
[2018-11-24] MEDS: Aspirin 81 MG TAB.CHEW PO SCH (07:32)
[2018-11-24] MEDS: Cholecalciferol (D-3) 1,000 UNIT TABLET PO SCH (07:33)
[2018-11-24] MEDS: Lactulose Oral Soln 20 GM/30 ML UDC PO SCH ×2 (07:33→20:54)
[2018-11-24] MEDS: Isosorbide MONOnitrate (24 HR) 30 MG TAB.ER.24H PO SCH (07:33)
[2018-11-24] MEDS: Metoprolol XL (24 HR) Succ 50 MG TAB.ER.24H PO SCH (07:33)
[2018-11-24] MEDS: lamoTRIgine 100 MG TABLET PO SCH (07:34)
[2018-11-24] MEDS: Insulin DETEMIR 100 UNIT/ML X5UNITS SQ SCH ×2 (07:36→20:19)
--- NOTE | 2018-11-24 09:49 | Infectious Disease Progress No ---
Date of Encounter: 11/24/18 Time of Encounter: 09:48 - Assessment and Plan (1) Complicated UTI (urinary tract infection) Current Visit: Yes Status: Acute Urinalysis and symptoms are concerning for UTI in setting of suprapubic catheter. -Patient reports symptoms of fever, chills, foul-smelling urine, urine leakage around super pubic catheter -He has recent admission at [facility] for UTI treated with unasyn; urinalysis on 10/29/2018 grew Klebsiella pneumoniae and Proteus Mirabilis, that had sensitivity to cefazolin, cefepime, ceftriaxone, ertapenem, imipenem, Zosyn. -Afebrile, hemodynamically stable -WBC 16.4 (yesterday 16.8) -respiratory infectious panel negative -Urinalysis with proteinuria, ketones, glucose, leukocyte esterase, WBC 50 to 100, yeast -11/19/2018 Blood culture x2 pending -11/19/2018 urine culture final Pseudomonas and yeast -no leakage around suprapubic catheter site and it is draining appropriately into [place] bag Plan: -start ciprofloxacin for total of 14 days abx. Continue cipro through 12/05/2018. Will sign off, thank you for consult. -stop cefepime -await the blood culture results (2) Ulcer of left heel Current Visit: Yes Status: Acute Patient presented with ulcer on left heel -does not appear infected at this time -left heel ulcer that has a little purulent around edge but clean base through subcutaneous tissue measuring 5 x 4 cm. -ESR 36 -CRP 14 -wound culture final negative for growth -foot x-ray demonstrated large deep soft tissue ulceration on heal -foot CT demonstrated large erosion on plantar surface. Sclerosis suggestive of osteomyelitis. Abscess plantar to the posterior calcaneus measuring 1.9 x 0.7 x 1.1 cm plan: -defer treatment and follow up to podiatry. Spoke with podiatry whom will follow up with patient in office. They do not believe patient needs abx for treatment of osteomyelitis. -podiatry following and stated that no abscess is present, no I&D. Qualifiers: Non-pressure ulcer stage: with fat layer exposed Qualified Code(s): L97.422 - Non-pressure chronic ulcer of left heel and midfoot with fat layer exposed - Subjective Interval history: Upon examination the patient is sitting up in bed comfortably. He reports improvement and suprapubic pain. He denied fever, chills, chest pain, shortness of breath, abdominal pain, dysuria. He has no other complaints. There were no overnight events. Infect Dis PN-Objective Data - Labs CBC & Chem 7: 11/24/18 03:16 11/24/18 03:16 Labs: Laboratory Results - last 24 hr 11/23/18 11/24/18 11/24/18 17:14 03:16 03:16 WBC 16.4 H RBC 4.10 L Hgb 11.8 L Hct 37.3 L MCV 91.0 MCH 28.8 MCHC 31.6 RDW 14.6 H Plt Count 310 MPV 10.2 Seg Neutrophils % 34.0 Lymphocytes % 56.0 Monocytes % 2.0 Eosinophils % 8.0 Neutrophils # 5.6 Lymphocytes # 9.2 H Monocytes # 0.3 Eosinophils # 1.3 H Reactive Lymphocytes Present A Platelet Estimate Normal Sodium 137 Potassium 4.3 Chloride 104 Carbon Dioxide 23 BUN 13 Creatinine 0.55 L Est GFR ( Amer) > 60 Est GFR (Non-Af Amer) > 60 BUN/Creatinine Ratio 24 Glucose 220 H POC Glucose 119 H Calculated Osmolality 291 Calcium 9.1 11/24/18 07:25 WBC RBC Hgb Hct MCV MCH MCHC RDW Plt Count MPV Seg Neutrophils % Lymphocytes % Monocytes % Eosinophils % Neutrophils # Lymphocytes # Monocytes # Eosinophils # Reactive Lymphocytes Platelet Estimate Sodium Potassium Chloride Carbon Dioxide BUN Creatinine Est GFR ( Amer) Est GFR (Non-Af Amer) BUN/Creatinine Ratio Glucose POC Glucose 190 H Calculated Osmolality Calcium Cultures: Cultures 11/20/18 14:00 Wound Culture - Final Left Foot No growth. 11/19/18 14:44 Urine Culture - Final Urine,Clean Catch Pseudomonas aeruginosa Yeast Species 11/19/18 16:10 Blood Culture - Preliminary Peripheral Venipuncture Culture is incubating and being continuously monitored for growth. Final report to follow. 11/19/18 16:10 Blood Culture - Preliminary Peripheral Venipuncture Culture is incubating and being continuously monitored for growth. Final report to follow. Serology 11/20/18 11/19/18 Range/Units 14:00 14:44 Urine Color Yellow (Yellow) Urine Clarity Slightly Cloudy A (Clear) Urine pH 5.5 (5.0-8.0) pH Units Ur Specific [place] 1.020 (1.010-1.025) Urine Protein 100 H (Neg-Trace) mg/dL Urine Glucose (UA) 500 H (Normal) mg/dL Urine Ketones >=160 H (Negative) mg/dL Urine Blood Small H (Negative) Urine Nitrite Negative (Negative) Urine Bilirubin Small H (Negative) Urine Urobilinogen Normal (Normal) mg/dL Ur Leukocyte Esterase Small H (Negative) Urine Microscopic RBC 0-3 (0-3) per hpf Urine Microscopic WBC 50-100 H (0-3) per hpf Ur Squamous Epith Cells Few (None-Few) per lpf Urine Yeast Many H (None Seen) per hpf Ur Culture Indicated? YES A (NO) Chlamy pneumoniae PCR Not Detected (Not Detect) Adenovirus (PCR) Not Detected (Not Detect) B. pertussis DNA (PCR) Not Detected (Not Detect) B.parapertussis DNA PCR Not Detected (Not Detect) Coronavirus OC43 (PCR) Not Detected (Not Detect) Coronavirus HKU1 (PCR) Not Detected (Not Detect) Coronavirus 229E (PCR) Not Detected (Not Detect) Coronavirus NL63 (PCR) Not Detected (Not Detect) Human Metapneumovir PCR Not Detected (Not Detect) Influenza A (H1) PCR Not Detected (Not Detect) Influ A (H1N1/09) PCR Not Detected (Not Detect) Influenza A (H3) PCR Not Detected (Not Detect) Influenza A Untype (PCR) Not Detected (Not Detect) Influenza Type B (PCR) Not Detected (Not Detect) M.pneumoniae DNA (PCR) Not Detected (Not Detect) Parainfluenza 1 (PCR) Not Detected (Not Detect) Parainfluenza 2 (PCR) Not Detected (Not Detect) Parainfluenza 3 (PCR) Not Detected (Not Detect) Parainfluenza 4 (PCR) Not Detected (Not Detect) RSV (PCR) Not Detected (Not Detect) Entero/Rhino (PCR) Not Detected (Not Detect) Exam - Constitutional Vitals: Temp Pulse Resp BP Pulse Ox 97.9 F 70 15 170/67 99 11/24/18 07:21 11/24/18 07:21 11/24/18 07:21 11/24/18 07:21 11/24/18 07:21 Exam: Gen.: Vitals noted. No acute distress. alert and oriented HEENT: oropharynx clear, Normocephalic, atraumatic Neck: Supple. No adenopathy. Cardiac: RRR, no murmur, +S1/S2 Pulmonary: CTA bilaterally, no wheezes, rales or rhonchi, equal chest expansion Abdomen: soft, suprapubic tender, Bowel sounds noted, no guarding, suprapubic catheter skin: left heel ulcer that has a little purulent around edge but clean base through subcutaneous tissue measuring 5 x 4 cm. Extremities: no BLE edema, nontender calf Neuro: alert and oriented, moves all extremities Psych: appropriate mood and behavior Consult Discharge Plan - Plan [facility]errals: [facility] [Primary Care Provider] - - Attending Attestation I examined this patient and my medical decision-making was reviewed with the Resident Physician. I agree with the documented findings, disposition and treatment plan as described except to the extent set forth below. Patient seen and examined in the presence of the podiatry nurse practitioner. I also called and spoke with Dr. Yu over the phone. Patient did have a CT lower extremity 11/21/2018 which was read "larger erosion of the plantar aspect of the posterior calcaneus. Underlying sclerosis extendin g into the mid calcaneal body. Findings are compatible with osteomyelitis. If clinically indicated further evaluation could be obtained with MRI. Large deep soft tissue ulceration posterior to the calcaneus. Suspected underlying abscess plantar to the posterior calcaneal measuring approximately 1.90.71.1 cm" when I spoke with Dr. Yu he was not convinced that there is an underlying infecti on and he thinks the wound looks okay. I agree that the wound looks good I am still concerned for the osteomyelitis. Dr. Yu stated that she does not want to treat or biopsy or try to I&D at this point. He will be happy to do this as an outpatient and evaluate maybe in 6 weeks with repeating imaging and inflammatory markers. At this point we will only treat the urinary tract infection, we will defer the questionable osteomyelitis findings on the CT scan to the podiatry team. Recommend levofloxacin for the Pseudomonas complicated UTI. Treat for 14 days total through 12/05/2018. We will sign off, if podiatry has any further questions or recommendations we will be happy to reevaluate.
--- NOTE | 2018-11-24 11:15 | Internal Med Progress Note ---
Hospitalist Progress Note - Encounter Date of Encounter: 11/24/18 Time of Encounter: 09:00 - Subjective Interval History: stable leukocytosis noted. Pt has no new complaints other than wanting to go back to [place]. No fever/chills, nausea/vomiting, or flank pain. Discussed with podiatry, no evidence of superficial or deep-seated infection. - Exam Vitals: Temp Pulse Resp BP Pulse Ox 97.8 F 72 16 125/69 99 11/24/18 10:48 11/24/18 10:48 11/24/18 10:48 11/24/18 10:48 11/24/18 10:48 Exam: General: Alert, mumbled speech. not in acute distress. Cardiovascular:Normal S1 & S2, No JVD. Pulse regular. Lungs: clear to auscultation, no wheezes/rales Abdomen:Soft, non-tender, no rigidity. : Suprapubic catheter draining relatively clear urine. No CVA tenderness Extremities: Left heel dressing c/d/i Neurological: grossly non-focal - Assessment and Plan (1) Complicated UTI (urinary tract infection) Current Visit: Yes Status: Acute Assessment and Plan: presented after an episode of fall and persistent leukocytosis of 19 but it appears to have improved from 11/16- when it was above 20 on chronic suprapubic catheter, unable to determine whether it is directly- related reportedly on unasyn at the [place] nursing facility, sensitivities from urine culture on 11/02 reviewed urine culture at our facility came back P. sen to cefepime, Cipro, Levaquin, and Zosyn abx switched to Cefepime, continue D3 persistent leukocytosis with lymphocytes predominance, unsure whether it is related to infectious process alone vs. ?hematological process US retroperitoneum unremarkable follow with ID (2) Osteomyelitis Current Visit: Yes Status: Suspected Assessment and Plan: Known decubitus ulcer over L heel ESR/CRP mildly elevated XR showed large soft tissue ulceration as well as questionable erosion along the plantar aspect of the posterior calcaneus. CT showed left calcaneal osteomyelitis as well as small abscess at the plantar aspect of the posterior calcaneus appreciate podiatry input, low suspicion for superficial or deep-seated infection despite the radiological findings continue abx as above for now, follow with ID (3) Abscess Current Visit: Yes Status: Acute Assessment and Plan: as above (4) Leukocytosis Current Visit: Yes Status: Acute Assessment and Plan: unsure whether it is purely related to infectious process as above hematology consult (5) Fall Current Visit: Yes Status: Acute Assessment and Plan: appears to be mechanical in nature in the setting of infection CT head and cervical spine-ve for traumatic sequelae tx infection as above (6) Dehydration Current Visit: Yes Status: Resolved Assessment and Plan: improved with IVF Encourage oral intake (7) Hyperglycemia Current Visit: Yes Status: Resolved (8) Hypernatremia Current Visit: Yes Status: Resolved Assessment and Plan: due to lack of water intake Resolved with 0.45% saline (9) CAD (coronary artery disease) Current Visit: Yes Status: Chronic Assessment and Plan: resume home meds (10) DVT prophylaxis Current Visit: Yes Status: Acute Assessment and Plan: SQ heparin - Time Spent with Patient Total time spent is greater than 50% in coordination of care (as documented) at patient's floor/unit and/or counseling patient: Greater than 35 minutes Plan of Care Discussed with: air quality consultant (discussed with podiatry and hematology in great detail) Internal Medicine: Result - Labs CBC & Chem 7: 11/24/18 03:16 11/24/18 03:16 Labs: Short CBC 11/24/18 Range/Units 03:16 WBC 16.4 H (4.3-11.1) K/mcL Hgb 11.8 L (12.9-16.9) g/dL Hct 37.3 L (37.5-50.1) % Plt Count 310 (140-400) K/mcL Neutrophils # 5.6 (1.6-8.9) K/mcL BMP 11/24/18 03:16 Sodium 137 Potassium 4.3 Chloride 104 Carbon Dioxide 23 BUN 13 Creatinine 0.55 L Glucose 220 H Calcium 9.1 - ABG Interpretation ABG results: PT/INR, D-dimer PT 12.2 Seconds (9.4-12.1) H 11/23/18 05:40 Consult Discharge Plan - Plan [facility]errals: [facility] [Primary Care Provider] - (2) Osteomyelitis Qualifiers: Osteomyelitis type: unspecified type Osteomyelitis location: foot Laterality: left Qualified Code(s): M86.9 - Osteomyelitis, unspecified (4) Leukocytosis Qualifiers: Leukocytosis type: lymphocytosis Qualified Code(s): D72.820 - Lymphocytosis (symptomatic) (5) Fall Qualifiers: Encounter type: initial encounter Qualified Code(s): W19.XXXA - Unspecified fall, initial encounter (9) CAD (coronary artery disease) Qualifiers: Coronary Disease-Associated Artery/Lesion type: unspecified vessel or lesion type [place] vs. transplanted heart: [place] heart Associated angina: without angina Qualified Code(s): I25.10 - Atherosclerotic heart disease of [place] coronary artery without angina pectoris
--- NOTE | 2018-11-24 14:30 | Oncology Inp Consult Note ---
<Johnnie Garcia R - Last Filed: 11/24/18 14:28> Date of Encounter: 11/24/18 Time of Encounter: 15:00 Assessment and Plan (1) Leukocytosis Status: Acute Assessment and plan: Presented with elevated WBC 19.0 on 11/19 ; downtrending & stable at 16.4 Lymphocyote predominant lymphocytosis w/ reactive lymphocytes & smudge cells Concern for CLL vs. Recent infectious process Low concern of CLL/hematologic process due to denial of constitutional symptoms Plan: Consider Blood flow cytometry to r/o CLL [Look for CD5+, CD19+, CD20, CD23+, CD38+ or ZAP70+] Continue monitoring for constitutional symptoms Reassess CBC w/ diff after infxn process is complete Qualifiers: Leukocytosis type: lymphocytosis Qualified Code(s): D72.820 - Lymphocytosis (symptomatic) (2) Hyperglycemia Status: Resolved Assessment and plan: Elevated Sugars with high of 282 and low of 120 Concern for sugars may exacerbate infectious process and delirium Plan: Consider holding sugars in 140-180 range (3) DVT prophylaxis Status: Acute Assessment and plan: SQ Heparin - Data of Consult Requesting Physician: Yg Barnes MD [facility] - Consult Narrative Reason for consult: Concern of Leukocytosis w/ Smudge Cells History of present illness: Mr. Haynes is a 68 y/o male with pertinent pMHx of CAD, CHF, Diabetes who presented to [facility] after episode of fall most likely 2/2 from urinary tract infection. Oncology has been consulted with concern of persistent lymphocyte- predominant leukocytosis and concerning peripheral blood smear with reactive lymphocytes and smudge cells. Concern for possible osteomyelitis from CT scan, however podiatry has low suspicion of superficial or deep-seated infection furthering concern for hematologic process. Today, patient appropriately answered questions with minimal signs of confusion. He denied any recent night sweats, fevers, chills, lymphadenopathy, and weight loss/gain. He states his sugars fluctuate at home ranging from 120-180. Denies any recent use of steroids. 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 suprapubic cath - Social History Smoking Status: Never smoker Smokeless Tobacco Status: No Alcohol use: none Drug use: none Medications and Allergies Acetaminophen [Tylenol] 650 mg PO Q6HR PRN 11/20/18 [History] Aspirin 81 mg PO DAILY 11/20/18 [History] Atorvastatin [Lipitor] 20 mg PO HS 11/20/18 [History] Bacitracin OINT PKT [Ak-Tracin] 1 appl TP DAILY 11/20/18 [History] Bisacodyl [Dulcolax] 10 mg PRIME MOWEFR 11/20/18 [History] Brimonidine 0.2% [Alphagan] 1 drop BOTH EYES BID 11/20/18 [History] Cholecalciferol (D-3) [Vitamin D] 1,000 units PO DAILY 11/20/18 [History] Clopidogrel [Plavix] 75 mg PO DAILY 11/20/18 [History] Insulin Glargine,Hum.rec.anlog [Basaglar Kwikpen U-100] 31 unit SQ QAM 11/20/18 [History] Insulin LISPRO [Humalog] 4 unit SQ TIDWM 11/20/18 [History] Isosorbide MONOnitrate (24 HR) [Imdur] 30 mg PO DAILY 11/20/18 [History] Lactulose [Enulose] 20 gm PO BID 11/20/18 [History] Losartan [Cozaar] 50 mg PO DAILY 11/20/18 [History] Magnesium Hydroxide [Milk of Magnesia] 30 ml PO DAILY PRN 11/20/18 [History] Metoprolol Succinate [Toprol Xl] 25 mg PO DAILY 11/20/18 [History] Multivitamin [One Daily Multivitamin] 1 tab PO DAILY 11/20/18 [History] Ondansetron [Zofran] 4 mg IVP Q4H PRN 11/20/18 [History] Pantoprazole Sodium [Protonix] 40 mg PO DAILY 11/20/18 [History] Polyethylene Glycol 3350 [MiraLAX] 17 gm PO DAILY 11/20/18 [History] Tramadol HCl [Ultram] 50 mg PO TID PRN 11/20/18 [History] Travoprost [Travatan Z] 1 drop BOTH EYES HS 11/20/18 [History] Ziprasidone HCl [Geodon] 60 mg PO BIDWM 11/20/18 [History] amLODIPine [Norvasc] 10 mg PO DAILY 11/20/18 [History] lamoTRIgine [Lamotrigine] 150 mg PO DAILY 11/20/18 [History] metFORMIN [Glucophage] 850 mg PO TIDWM 11/20/18 [History] Allergy/AdvReac Type Severity Reaction Status Date / Time Amoxicillin Allergy Anaphylaxis Verified 07/09/16 17:38 clavulanic acid Allergy Anaphylaxis Verified 07/09/16 17:38 Constitutional: Absent: anorexia, chills, excessive sweating, fatigue, fever(s), headache(s), increased appetite, lethargy, night sweats, weakness, weight gain, weight loss Eyes: Absent: change in vision Cardiovascular: Absent: chest pain, chest pain at rest, edema, palpitations Respiratory: Present: cough. Absent: dyspnea, wheezing Gastrointestinal: Absent: abdominal pain, diarrhea, melena Genitourinary: Absent: difficulty urinating, dysuria, hematuria Musculoskeletal: Absent: arthralgias, back pain, muscle weakness Endocrine: Absent: fatigue, flushing, palpitations Oncology - Exam - Head Head exam: Present: atraumatic, normocephalic - Eye Eye exam: Present: normal appearance - ENT ENT exam: Present: mucous membranes moist - Neck Neck exam: Absent: lymphadenopathy, thyromegaly - Respiratory Respiratory exam: Present: chest wall tenderness, CTAB. Absent: rales, rhonchi - Cardiovascular Cardiovascular exam: Present: RRR, +S1, +S2 - GI/Abdominal GI/Abdominal exam: Present: normal bowel sounds. Absent: organomegaly Additional comments: mild involuntary rebound on palpation of left upper quadrant No hepatosplenomegaly noted - Neurological Exam Neurological exam: Present: alert, altered, oriented X3 - Psychiatric Psychiatric exam: Present: normal affect, normal mood - Skin Skin exam: Present: dry Additional comments: bruises noted on knuckles on right hand Consult Discharge Plan - Plan [facility]errals: [facility] Care Provider[facility] - Inpatient Charges Provider: Dr. Samreen Vera <Cici Vera - Last Filed: 11/24/18 18:16> Date of Encounter: 11/24/18 - Data of Consult Requesting Physician: Yg Barnes MD Primary Care Provider: [facility] - Attending Attestation I examined this patient and my medical decision-making was reviewed with medical student Johnnie Garcia . I agree with the documented findings, disposition and treatment plan as described except to the extent set forth below. 1. Lymphocytosis with lymphocyte count around 12,000. He may have underlying lymphoproliferative disorder like CLL. We will proceed with peripheral blood flow cytometry. We will do Fish panel if needed. Peripheral smear pathology review pending 2. Is lymphocyte counts were normal in February 2018. CT abdomen and pelvis February 2018 unremarkable with no lymphadenopathy. We will do CT chest without contrast 3. Possible osteomyelitis left foot. CT scan left foot showed ulceration left calcaneus area. Podiatry involved patient does not need antibiotics
--- NOTE | 2018-11-24 14:34 | Podiatry Progress Note ---
Date of Encounter: 11/24/18 Time of Encounter: 13:20 - Assessment and Plan (1) Ulcer of left heel Current Visit: Yes Status: Acute Assessment: Skin cool from toes to tibia Cap refill sluggish Absent protective sensation Pressure ulcer left calcaneus, no odor, no streaking, no tunneling, wound edges attached except for 1.2cm undermining noted at 6 o'clock position, wound margins and wound palpated and no fluctuance noted to indicate abscess, no purulent drainage Fibrinous tissue noted around edges at 6 o'clock position Serosang drainage noted to Allevyn dressing Wound culture from 11/10/18 final, no growth Blood cultures preliminary CRP 14 ESR 36 WBC 16.4 Glucose 220 Plan: Wound flushed with .9NS and patted dry Mesalt applied to ulcer 6 o'clock position Covered with Allevyn dressing Changed Allevyn dressing to posterior tibia area Bilateral lower extremities placed back in heel medix boots, patient to continue to wear at all times while in bed Follow up with Dr. Yu in wound care center after discharge, please call to schedule appointment Will continue to monitor Qualifiers: Non-pressure ulcer stage: with fat layer exposed Qualified Code(s): L97.422 - Non-pressure chronic ulcer of left heel and midfoot with fat layer exposed Subjective Interval history: Patient is alert and oriented to name, place, date of , and month. He needed reoriented to year. He denies any chest pain, shortness of breath, or calf pain. He denies any fever, chills, nausea, vomiting, or diarrhea. Objective - Vital Signs Vital Signs: Vital Signs Temp Pulse Resp BP Pulse Ox 11/24/18 10:48 97.8 F 72 16 125/69 99 11/24/18 07:21 97.9 F 70 15 170/67 99 11/24/18 03:34 98.0 F 66 16 163/64 98 11/23/18 20:09 97.5 F L 69 15 137/63 100 11/23/18 20:08 100 Intake and Output 11/23/18 11/24/18 11/24/18 23:59 07:59 15:59 Intake Total 1000 / 1000 300 / 300 Output Total 0 / 0 1150 / 1150 100 / 100 Balance 1000 / 1000 -850 / -850 -100 / -100 Intake: IV Fluids 1000 / 1000 100 / 100 0.9 % Sodium Chloride 1,000 ML 900 / 900 @ 50 mls/hr IVC .Q20H RIKKI Rx#: [id number] Maxipime 1,000 MG In 0.9 % 100 / 100 100 / 100 Sodium Chloride (Mini-Bag +) 100 ML @ 200 mls/hr IVPB Q12HR RIKKI Rx#:[id number] Oral 0 / 0 200 / 200 Output: Urine 0 / 0 0 / 0 Catheter 1150 / 1150 100 / 100 Other: Weight 75.4 kg Blood Glucose* 205 190 127 Patient Weight 11/24/18 23:59 Weight 75.4 kg - Exam Exam: Constitutional: Patient is alert and oriented to person, place, and month, needed reoriented to year, no acute distress noted Vascular: skin cool from toes to tibia, no calf pain with squeeze, cap refill sluggish Neurological: sensation diminished, proprioception absent Dermatological: Pressure ulcer noted posterior calcaneus, edges attached except at 6 o'clock position there is undermining noted 1.2 cm, no evidence of abscess, no purulent drainage, no odor, no streaking Musculoskeletal: muscle tone absent bilateral feet and legs, 3/5 muscle strength bilaterally - Lab Result Diagrams: 11/24/18 03:16 11/24/18 03:16 Labs: Abnormal lab results WBC 16.4 K/mcL (4.3-11.1) H 11/24/18 03:16 RBC 4.10 M/mcL (4.19-5.50) L 11/24/18 03:16 Hgb 11.8 g/dL (12.9-16.9) L 11/24/18 03:16 Hct 37.3 % (37.5-50.1) L 11/24/18 03:16 RDW 14.6 % (11.5-14.5) H 11/24/18 03:16 Promyelocytes % 1.0 % (0) H 11/19/18 13:06 Lymphocytes # 9.2 K/mcL (0.6-4.6) H 11/24/18 03:16 Eosinophils # 1.3 K/mcL (0.0-0.6) H 11/24/18 03:16 Reactive Lymphocytes Present (Not Present) A 11/24/18 03:16 Smudge Cells Present (Not Present) A 11/22/18 08:18 ESR 36 mm/hr (0-10) H 11/21/18 06:25 PT 12.2 Seconds (9.4-12.1) H 11/23/18 05:40 VBG pH 7.46 pH Units (7.32-7.42) H 11/19/18 16:14 VBG pCO2 34 mmHg (41-51) L 11/19/18 16:14 VBG pO2 181 mmHg (25-50) H 11/19/18 16:14 Creatinine 0.55 mg/dL (0.70-1.30) L 11/24/18 03:16 Glucose 220 mg/dL (70-105) H 11/24/18 03:16 POC Glucose 127 mg/dL (70-99) H 11/24/18 11:00 C-Reactive Protein 14 mg/L (Less than 10) H 11/21/18 06:25 Beta-Hydroxybutyric Acd > 2.00 mmol/L (0.02-0.27) H 11/19/18 15:58 Urine Clarity Slightly Cloudy (Clear) A 11/19/18 14:44 Urine Protein 100 mg/dL (Neg-Trace) H 11/19/18 14:44 Urine Glucose (UA) 500 mg/dL (Normal) H 11/19/18 14:44 Urine Ketones >=160 mg/dL (Negative) H 11/19/18 14:44 Urine Blood Small (Negative) H 11/19/18 14:44 Urine Bilirubin Small (Negative) H 11/19/18 14:44 Ur Leukocyte Esterase Small (Negative) H 11/19/18 14:44 Urine Microscopic WBC 50-100 per hpf (0-3) H 11/19/18 14:44 Urine Yeast Many per hpf (None Seen) H 11/19/18 14:44 Ur Culture Indicated? YES (NO) A 11/19/18 14:44 Microbiology, Last 48 Hours 11/20/18 14:00 Wound Culture - Final Left Foot No growth. 11/19/18 14:44 Urine Culture - Final Urine,Clean Catch Pseudomonas aeruginosa Yeast Species Consult Discharge Plan - Plan [facility]errals: [facility]Primary Care Provider[facility] -
[2018-11-24] MEDS: Ondansetron 4 MG/2 ML VIAL IVP PRN (20:24)
[2018-11-24] MEDS: Latanoprost 2.5 ML BOTTLE BOTH EYES SCH (20:30)
[2018-11-25 04:11] LABS: Basophils % 0.2 %; Eosinophils # 0.3 K/mcL (0.0-0.6); Eosinophils % 1.6 %; Hematocrit 39.3 % (37.5-50.1); Hemoglobin 12.3 g/dL (12.9-16.9); Immature Granulocytes % 0.2 % (0-4); Lymphocytes # 10.1 K/mcL (0.6-4.6); Lymphocytes % 64.3 %; Mean Corpuscular HGB Conc 31.3 g/dL (31.6-35.5); Mean Corpuscular Hemoglobin 28.2 pg (28.0-33.3); Mean Corpuscular Volume 90.1 fL (83.0-100.0); Mean Platelet Volume 10.4 fL (9.4-12.4); Monocytes # 0.6 K/mcL (0.0-1.3); Monocytes % 3.7 %; Neutrophils # 4.7 K/mcL (1.6-8.9); Platelet Count 363 K/mcL (140-400); Red Blood Count 4.36 M/mcL (4.19-5.50); Red Cell Distribution Width 14.2 % (11.5-14.5)
[2018-11-25 04:23] LABS: BUN/Creatinine Ratio 14 (6-26); Blood Urea Nitrogen 8 mg/dL (8-23); Calcium 9.6 mg/dL (8.6-10.3); Carbon Dioxide 27 mEq/L (23-29); Chloride 101 mEq/L (98-107); Glucose 240 mg/dL (70-105); Osmolality,Calculated 290 (280-300); Potassium 4.2 mEq/L (3.5-5.1); Sodium 137 mEq/L (136-145); eGFR For Non-African Americans > 60 (> 60)
[2018-11-25] MEDS: *HR* Heparin 5,000 UNIT/ML VIAL SQ SCH ×2 (05:55→17:20)
[2018-11-25] MEDS: Insulin LISPRO 300 UNITS/3 ML VIAL SQ SCH ×4 (08:23→21:18)
[2018-11-25] MEDS: Lactulose Oral Soln 20 GM/30 ML UDC PO SCH ×2 (08:24→21:15)
[2018-11-25] MEDS: Ziprasidone 20 MG CAPSULE PO SCH ×2 (08:26→17:21)
[2018-11-25] MEDS: amLODIPine 5 MG TABLET PO SCH (08:27)
[2018-11-25] MEDS: Aspirin 81 MG TAB.CHEW PO SCH (08:27)
[2018-11-25] MEDS: Cholecalciferol (D-3) 1,000 UNIT TABLET PO SCH (08:27)
[2018-11-25] MEDS: Isosorbide MONOnitrate (24 HR) 30 MG TAB.ER.24H PO SCH (08:27)
[2018-11-25] MEDS: Metoprolol XL (24 HR) Succ 50 MG TAB.ER.24H PO SCH (08:27)
[2018-11-25] MEDS: lamoTRIgine 100 MG TABLET PO SCH (08:27)
[2018-11-25] MEDS: Insulin DETEMIR 100 UNIT/ML X5UNITS SQ SCH ×2 (08:34→21:31)
--- NOTE | 2018-11-25 10:06 | Podiatry Progress Note ---
Date of Encounter: 11/25/18 Time of Encounter: 09:00 - Assessment and Plan (1) Ulcer of left heel Current Visit: Yes Status: Acute Assessment: Skin cool from toes to tibia Cap refill sluggish Absent protective sensation Pressure ulcer left calcaneus, no odor, no streaking, no tunneling, wound edges attached except for 1.2cm undermining noted at 6 o'clock position, wound margins and wound palpated and no fluctuance noted to indicate abscess, no purulent drainage Fibrinous tissue noted around edges at 6 o'clock position Minimal serosang drainage noted to Allevyn dressing Wound culture from 11/10/18 final and shows no growth Blood cultures from 11/19/18 arer final and reflect no growth CRP 14 ESR 36 WBC 15.7 and downtrending Glucose 240 Plan: Wound flushed with .9NS and patted dry Mesalt applied to ulcer at 6 o'clock position Site covered with Allevyn dressing Bilateral lower extremities placed back in heel medix boots, patient to continue to wear at all times while in bed Follow up with Dr. Yu in wound care center after discharge, please call to schedule appointment Will continue to monitor Qualifiers: Non-pressure ulcer stage: with fat layer exposed Qualified Code(s): L97.422 - Non-pressure chronic ulcer of left heel and midfoot with fat layer exposed Subjective Interval history: Patient is alert and oriented to name, place, date of , year, and month, however within a few minutes he was confused on where he was [facility] He denies any chest pain, shortness of breath, or calf pain. He denies any fever, chills, nausea, vomiting, or diarrhea. Objective - Vital Signs Vital Signs: Vital Signs Temp Pulse Resp BP Pulse Ox 11/25/18 07:43 98.5 F 77 18 165/45 97 11/25/18 07:25 97 11/25/18 04:21 98.2 F 75 16 160/64 99 11/24/18 19:51 98.4 F 71 15 158/71 96 11/24/18 15:01 98.3 F 69 16 168/69 99 11/24/18 10:48 97.8 F 72 16 125/69 99 Intake and Output 11/24/18 11/25/18 11/25/18 23:59 07:59 15:59 Intake Total 120 / 120 120 / 120 Output Total 750 / 750 Balance -630 / -630 120 / 120 Intake: Oral 120 / 120 120 / 120 Output: Urine 0 / 0 Catheter 750 / 750 Suprapubic 750 / 750 Other: Meal Breakfast Percent of Meal Consumed 25% Weight 74.9 kg Blood Glucose* 181 191 Patient Weight 11/25/18 23:59 Weight 74.9 kg - Exam Exam: Constitutional: Patient is alert and oriented, but has periods of confusion in regards to place and time. No acute distress noted Vascular: Cap refill sluggish. Hyperpigmentation noted to lower extremities. Skin cool from toes to tibia. No pain with calf squeeze. Neurological: Absent protective sensation, abnormal proprioception dorsiflexion/plantar flexion of toe Dermatological: Ulcer noted left posterior calcaneus, edges attached except at 6 o-clock position there is undermining noted with some fibrinous tissue, no fluctuance, no odor, no purulent drainage, no tunneling, no streaking Musculoskeletal: 3/5 muscle strength, diminished muscle tone - Lab Result Diagrams: 11/25/18 02:52 11/25/18 02:52 Labs: Abnormal lab results WBC 15.7 K/mcL (4.3-11.1) H 11/25/18 02:52 Hgb 12.3 g/dL (12.9-16.9) L 11/25/18 02:52 MCHC 31.3 g/dL (31.6-35.5) L 11/25/18 02:52 Promyelocytes % 1.0 % (0) H 11/19/18 13:06 Lymphocytes # 10.1 K/mcL (0.6-4.6) H 11/25/18 02:52 Reactive Lymphocytes Present (Not Present) A 11/24/18 03:16 Smudge Cells Present (Not Present) A 11/22/18 08:18 ESR 36 mm/hr (0-10) H 11/21/18 06:25 PT 12.2 Seconds (9.4-12.1) H 11/23/18 05:40 VBG pH 7.46 pH Units (7.32-7.42) H 11/19/18 16:14 VBG pCO2 34 mmHg (41-51) L 11/19/18 16:14 VBG pO2 181 mmHg (25-50) H 11/19/18 16:14 Creatinine 0.58 mg/dL (0.70-1.30) L 11/25/18 02:52 Glucose 240 mg/dL (70-105) H 11/25/18 02:52 POC Glucose 181 mg/dL (70-99) H 11/24/18 19:55 C-Reactive Protein 14 mg/L (Less than 10) H 11/21/18 06:25 Beta-Hydroxybutyric Acd > 2.00 mmol/L (0.02-0.27) H 11/19/18 15:58 Urine Clarity Slightly Cloudy (Clear) A 11/19/18 14:44 Urine Protein 100 mg/dL (Neg-Trace) H 11/19/18 14:44 Urine Glucose (UA) 500 mg/dL (Normal) H 11/19/18 14:44 Urine Ketones >=160 mg/dL (Negative) H 11/19/18 14:44 Urine Blood Small (Negative) H 11/19/18 14:44 Urine Bilirubin Small (Negative) H 11/19/18 14:44 Ur Leukocyte Esterase Small (Negative) H 11/19/18 14:44 Urine Microscopic WBC 50-100 per hpf (0-3) H 11/19/18 14:44 Urine Yeast Many per hpf (None Seen) H 11/19/18 14:44 Ur Culture Indicated? YES (NO) A 11/19/18 14:44 Microbiology, Last 48 Hours 11/19/18 16:10 Blood Culture - Final Peripheral Venipuncture No growth. Final report. 11/19/18 16:10 Blood Culture - Final Peripheral Venipuncture No growth. Final report. Consult Discharge Plan - Plan [facility]errals: [facility] [Primary Care Provider] -
--- NOTE | 2018-11-25 16:34 | Oncology Inp Progress Note ---
<Cici Vera S - Last Filed: 11/25/18 17:13> Date of Encounter: 11/25/18 Time of Encounter: 17:13 Oncology: Obj Data - Labs CBC & Chem 7: 11/25/18 02:52 11/25/18 02:52 Consult Discharge Plan - Plan [facility]errals: [facility] [Primary Care Provider[facility] - Inpatient Charges Provider: Dr. Samreen Vera Follow up - Inpatient: [id number] - Attending Attestation I examined this patient and my medical decision-making was reviewed with the Advanced Practice Nurse. I agree with the documented findings, disposition and treatment plan as described except to the extent set forth below. 1. Possible lymphoproliferative disorder with mild peripheral blood lymphocytosis. CT chest without contrast 11/24/2018 showed subcentimeter bilateral axillary lymph node. Also subcentimeter right middle lobe lung nodule which will follow. Esophageal mural thickening noted. At this time we will sign off. We will evaluate him as an outpatient once we have the results from flow cytometry. He does not need any acute intervention for his lymphocytosis <Tayla Doran L - Last Filed: 11/26/18 09:35> Date of Encounter: 11/25/18 (1) Leukocytosis Current Visit: Yes Status: Acute Assessment and plan: Presented with elevated WBC 19.0 on 11/19 ; downtrending & stable In the setting of complicated UTI with suprapubic catheter and left foot uler- foot CT demonstrated large erosion on plantar surface. Sclerosis suggestive of osteomyelitis Lymphocyote predominant lymphocytosis w/ reactive lymphocytes & smudge cells Etiology may be secondary to CLL vs. infectious process Denies B symptoms Plan: Blood flow cytometry drawn, pending Blood smear reviewed which does reveal some abnormal lymphocytes and smudge cells CT of the chest does show small, bilateral, subcentimeter axillary CONOR He may have underlying CLL/SLL At this time, we will arrange for outpatient follow up with Dr. Vera to discuss flow cytometry results which will take several days to result He does live 90 minutes away, I discussed referral to oncologist closer to home but her prefers to follow up with [place]. At this time, we will otherwise sign off, please feel free to reconsult if needed Qualifiers: Leukocytosis type: lymphocytosis Qualified Code(s): D72.820 - Lymphocytosis (symptomatic) Oncology: Subj Interval history: Mr. Haynes states he is feeling much better. denies pain, urinary or bowel complaint. he has been afebrile. He is alert and oriented, conversant. states he lives at home with . - Constitutional General appearance: cooperative, no acute distress, no febrile - Head Head exam: Present: atraumatic - ENT ENT exam: Present: mucous membranes moist, normal oropharynx - Respiratory Respiratory exam: Present: CTAB. Absent: respiratory distress - Cardiovascular Cardiovascular exam: Present: RRR, +S1, +S2 - GI/Abdominal GI/Abdominal exam: Present: normal bowel sounds, soft. Absent: tenderness - Extremities Exam Extremities exam: Present: normal inspection. Absent: calf tenderness - Neurological Exam Neurological exam: Present: alert, oriented X3, no focal deficits, strengths equal and symetr throughout - Psychiatric Psychiatric exam: Present: normal affect, normal mood - Skin Skin exam: Present: dry, intact, normal color, warm Additional comments: left heel dressing intact, not removed during assessment, bilateral heel boots Oncology: Obj Data - Labs CBC & Chem 7: 11/25/18 02:52 11/25/18 02:52
--- NOTE | 2018-11-25 18:29 | Internal Med Progress Note ---
Hospitalist Progress Note - Encounter Date of Encounter: 11/25/18 Time of Encounter: 18:25 - Subjective Interval History: Pt denies fever, chills, N/V or diarrhea. He denies chest pain or SOB. - Exam Vitals: Temp Pulse Resp BP Pulse Ox 98.0 F 65 16 115/63 97 11/25/18 17:14 11/25/18 17:14 11/25/18 17:14 11/25/18 17:14 11/25/18 17:14 Exam: General: Alert, mumbled speech. not in acute distress. Cardiovascular:Normal S1 & S2, No JVD. Pulse regular. Lungs: clear to auscultation, no wheezes/rales Abdomen:Soft, non-tender, no rigidity. : Suprapubic catheter draining relatively clear urine. No CVA tenderness Extremities: Left heel dressing c/d/i Neurological: grossly non-focal - Assessment and Plan (1) Hyperglycemia Current Visit: Yes Status: Resolved Assessment and Plan: History of diabetes, glycemic control likely aggravated by ongoing infection. Increase levemir to 15U BID. Continue moderate dose sliding scale ADA diet (2) Dehydration Current Visit: Yes Status: Resolved Assessment and Plan: improved with IVF Encourage oral intake (3) Hypernatremia Current Visit: Yes Status: Resolved Assessment and Plan: due to lack of water intake Resolved with 0.45% saline (4) Complicated UTI (urinary tract infection) Current Visit: Yes Status: Acute Assessment and Plan: presented after an episode of fall and persistent leukocytosis of 19 but it appears to have improved from 11/16- when it was above 20 on chronic suprapubic catheter, unable to determine whether it is directly- related reportedly on unasyn at the [place] nursing facility, sensitivities from urine culture on 11/02 reviewed urine culture at our facility came back P. sen to cefepime, Cipro, Levaquin, and Zosyn abx switched to Cefepime, continue D3. Persistent leukocytosis with lymphocytes predominance. Seen by oncology and cytometry sent. Follow up out pt with oncology. US retroperitoneum unremarkable. follow with ID (5) CAD (coronary artery disease) Current Visit: Yes Status: Chronic Assessment and Plan: ASA and Lipitor (6) Osteomyelitis Current Visit: Yes Status: Suspected Assessment and Plan: Known decubitus ulcer over L heel ESR/CRP mildly elevated XR showed large soft tissue ulceration as well as questionable errosion along the plantar aspect of the posterior calcaneus. CT showed left calcaneal osteomyelitis as well as small abscess at the plantar aspect of the posterior calcaneus appreciate podiatry input, low suspicion for superficial or deep-seated infection despite the radiological findings continue abx as above for now, follow with ID. (7) Abscess Current Visit: Yes Status: Acute Assessment and Plan: as above (8) Leukocytosis Current Visit: Yes Status: Acute Assessment and Plan: unsure whether it is purely related to infectious process as above hematology consult saw the pt and recommends out pt follow up for further work up. (9) Fall Current Visit: Yes Status: Acute Assessment and Plan: Appears to be mechanical in nature in the setting of infection Consulting PT/OT to see. 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 Haynes is a 68 year old male, [place] patient with past medical history of CAD, CHF, diabetes, neurogenic bladder on suprapubic catheter, ?Parkinson's, recently treated MDRO UTI, presented to the ED from [place] nursing facility after an episode of fall. History is somewhat limited due to pt's underlying cognitive impairment hence further information was obtained from the ED physician. He was recently discharged from [facility] medical floor after being treated for MDRO UTI with IV Unasyn. Today, pt was rushing to get cleaned, missed a footing, and fell. Unwitnessed, no change in mental statu per [facility] staff. No report of prodromal symptoms, seizure like activities, loss of bowel control, or confusion after the fall. No fever/chills, N/V, abdominal pain, flank pain. Denies any chest pain, shortness of breath, cough, or sputum production. In the ED, he was afebrile and hemodynamically stable. Labwork showed leukocytosis of 19 with peripheral blood smear showing increased mature lymphocytes. Sodium of 147, creatinine 0.87, and glucose of 428. Lactate normal. Urinalysis revealed small amount of LE. CT head and cervical spine did not show any traumatic injury. Chest x-ray grossly normal. Patient was given IVF, IV insulin 10U, and admitted for further management. Upon reviewing the record from [place], his white count for the last 3 days were above 20. - Time Spent with Patient Total time spent is greater than 50% in coordination of care (as documented) at patient's floor/unit and/or counseling patient: less than 15 minutes Plan of Care Discussed with: patient Internal Medicine: Result - Labs CBC & Chem 7: 11/25/18 02:52 11/25/18 02:52 Labs: Short CBC 11/25/18 Range/Units 02:52 WBC 15.7 H (4.3-11.1) K/mcL Hgb 12.3 L (12.9-16.9) g/dL Hct 39.3 (37.5-50.1) % Plt Count 363 (140-400) K/mcL Neutrophils # 4.7 (1.6-8.9) K/mcL BMP 11/25/18 02:52 Sodium 137 Potassium 4.2 Chloride 101 Carbon Dioxide 27 BUN 8 Creatinine 0.58 L Glucose 240 H Calcium 9.6 - ABG Interpretation ABG results: PT/INR, D-dimer PT 12.2 Seconds (9.4-12.1) H 11/23/18 05:40 - Impressions Impressions Chest CT 11/24/18 19:00 IMPRESSION: No pathologically enlarged lymph nodes are identified within the mediastinum or within the axilla. Having said that, there is an increased number of subcentimeter axillary lymph nodes seen bilaterally. 3 mm nodule within the right middle lobe. Follow-up recommendations below. Mild diffuse mural thickening of the esophagus. Correlate with clinical evidence of esophagitis. RECOMMENDATIONS: Fleischner Society guidelines for follow-up and management of incidentally detected pulmonary nodules: Single Solid Nodule: Nodule size less than 6 mm In a low-risk patient, no routine follow-up. In a high-risk patient, optional CT at 12 months. - Low risk patients include individuals with minimal or absent history of smoking and other known risk factors. - High risk patients include individuals with a history or smoking or known risk factors. Radiology 2017 http://pubs.rsna.org/doi/full/10.1148/radiol.1959652478 D/ / Kin Mazariegos MD / Kin Mazariegos MD Interpreting Provider: Kin Mazariegos MD Consult Discharge Plan - Plan [facility]errals: [facility] [Primary Care Provider] - (5) CAD (coronary artery disease) Qualifiers: Coronary Disease-Associated Artery/Lesion type: unspecified vessel or lesion type [place] vs. transplanted heart: [place] heart Associated angina: without angina Qualified Code(s): I25.10 - Atherosclerotic heart disease of [place] coronary artery without angina pectoris (6) Osteomyelitis Qualifiers: Osteomyelitis type: unspecified type Osteomyelitis location: foot Laterality: left Qualified Code(s): M86.9 - Osteomyelitis, unspecified (8) Leukocytosis Qualifiers: Leukocytosis type: lymphocytosis Qualified Code(s): D72.820 - Lymphocytosis (symptomatic) (9) Fall Qualifiers: Encounter type: initial encounter Qualified Code(s): W19.XXXA - Unspecified fall, initial encounter
[2018-11-25] MEDS: Latanoprost 2.5 ML BOTTLE BOTH EYES SCH (21:19)
[2018-11-26] MEDS: *HR* Heparin 5,000 UNIT/ML VIAL SQ SCH ×2 (06:56→17:08)
[2018-11-26] MEDS: Lactulose Oral Soln 20 GM/30 ML UDC PO SCH ×2 (09:25→22:14)
[2018-11-26] MEDS: Cholecalciferol (D-3) 1,000 UNIT TABLET PO SCH (09:26)
[2018-11-26] MEDS: Ziprasidone 20 MG CAPSULE PO SCH ×2 (09:26→17:08)
[2018-11-26] MEDS: Isosorbide MONOnitrate (24 HR) 30 MG TAB.ER.24H PO SCH (09:26)
[2018-11-26] MEDS: lamoTRIgine 100 MG TABLET PO SCH (09:26)
[2018-11-26] MEDS: Metoprolol XL (24 HR) Succ 50 MG TAB.ER.24H PO SCH (09:27)
[2018-11-26] MEDS: Aspirin 81 MG TAB.CHEW PO SCH (09:27)
[2018-11-26] MEDS: amLODIPine 5 MG TABLET PO SCH (09:27)
[2018-11-26] MEDS: Insulin DETEMIR 100 UNIT/ML X5UNITS SQ SCH ×2 (09:28→22:22)
[2018-11-26] MEDS: Insulin LISPRO 300 UNITS/3 ML VIAL SQ SCH ×4 (09:29→22:15)
--- NOTE | 2018-11-26 10:49 | Podiatry Progress Note ---
Date of Encounter: 11/26/18 Time of Encounter: 09:15 - Assessment and Plan (1) Ulcer of left heel Current Visit: Yes Status: Acute Assessment: Skin cool from toes to tibia Cap refill sluggish Absent protective sensation Pressure ulcer left calcaneus, no odor, no streaking, no tunneling, wound edges attached except for 1.2cm undermining noted at 6 o'clock position, wound margins and wound palpated and no fluctuance noted to indicate abscess, no purulent drainage Fibrinous tissue noted around edges at 6 o'clock position Minimal serosang drainage noted to Allevyn dressing Wound culture from 11/10/18 final and shows no growth Blood cultures from 11/19/18 arer final and reflect no growth CRP 14 ESR 36 Plan: Wound flushed with .9NS and patted dry Mesalt applied to ulcer at 6 o'clock position Site covered with Allevyn dressing Bilateral lower extremities placed back in heel medix boots, patient to continue to wear at all times while in bed Follow up with Dr. Yu in wound care center after discharge, please call to schedule appointment Will continue to monitor Qualifiers: Non-pressure ulcer stage: with fat layer exposed Qualified Code(s): L97.422 - Non-pressure chronic ulcer of left heel and midfoot with fat layer exposed Subjective Interval history: Patient is alert and oriented to name, place, date of , year, month, and da y. He denies any chest pain, shortness of breath, or calf pain. He denies any fever, chills, nausea, vomiting, or diarrhea. Objective - Vital Signs Vital Signs: Vital Signs Temp Pulse Resp BP Pulse Ox 11/26/18 05:11 97.7 F 63 15 129/60 99 11/25/18 23:57 97.6 F 64 13 104/57 98 11/25/18 19:30 98.2 F 69 18 143/63 97 11/25/18 18:57 98.0 F 68 13 124/66 97 11/25/18 17:14 98.0 F 65 16 115/63 97 11/25/18 11:14 98.2 F 75 17 122/65 97 Intake and Output 11/25/18 11/26/18 11/26/18 23:59 07:59 15:59 Intake Total 240 / 240 360 / 360 Output Total 1000 / 1000 Balance 240 / 240 -1000 / -1000 360 / 360 Intake: Oral 240 / 240 360 / 360 Output: Catheter 1000 / 1000 Other: Meal Breakfast Percent of Meal Consumed 50% # Bowel Movement Diapers 0 Blood Glucose* 226 147 - Exam Exam: Constitutional: Patient is alert and oriented. No acute distress noted Vascular: Cap refill sluggish. Hyperpigmentation noted to lower extremities. Skin cool from toes to tibia. No pain with calf squeeze. Neurological: Absent protective sensation, patient aware of proprioception dorsiflexion/plantar flexion of toes Dermatological: Ulcer noted left posterior calcaneus, edges attached except at 6 o-clock position there is undermining noted with some fibrinous tissue, no fluctuance, no odor, no purulent drainage, no tunneling, no streaking Musculoskeletal: 3/5 muscle strength, diminished muscle tone - Lab Result Diagrams: 11/25/18 02:52 11/25/18 02:52 Labs: Abnormal lab results WBC 15.7 K/mcL (4.3-11.1) H 11/25/18 02:52 Hgb 12.3 g/dL (12.9-16.9) L 11/25/18 02:52 MCHC 31.3 g/dL (31.6-35.5) L 11/25/18 02:52 Promyelocytes % 1.0 % (0) H 11/19/18 13:06 Lymphocytes # 10.1 K/mcL (0.6-4.6) H 11/25/18 02:52 Reactive Lymphocytes Present (Not Present) A 11/24/18 03:16 Smudge Cells Present (Not Present) A 11/22/18 08:18 ESR 36 mm/hr (0-10) H 11/21/18 06:25 PT 12.2 Seconds (9.4-12.1) H 11/23/18 05:40 VBG pH 7.46 pH Units (7.32-7.42) H 11/19/18 16:14 VBG pCO2 34 mmHg (41-51) L 11/19/18 16:14 VBG pO2 181 mmHg (25-50) H 11/19/18 16:14 Creatinine 0.58 mg/dL (0.70-1.30) L 11/25/18 02:52 Glucose 240 mg/dL (70-105) H 11/25/18 02:52 POC Glucose 147 mg/dL (70-99) H 11/26/18 08:18 C-Reactive Protein 14 mg/L (Less than 10) H 11/21/18 06:25 Beta-Hydroxybutyric Acd > 2.00 mmol/L (0.02-0.27) H 11/19/18 15:58 Urine Clarity Slightly Cloudy (Clear) A 11/19/18 14:44 Urine Protein 100 mg/dL (Neg-Trace) H 11/19/18 14:44 Urine Glucose (UA) 500 mg/dL (Normal) H 11/19/18 14:44 Urine Ketones >=160 mg/dL (Negative) H 11/19/18 14:44 Urine Blood Small (Negative) H 11/19/18 14:44 Urine Bilirubin Small (Negative) H 11/19/18 14:44 Ur Leukocyte Esterase Small (Negative) H 11/19/18 14:44 Urine Microscopic WBC 50-100 per hpf (0-3) H 11/19/18 14:44 Urine Yeast Many per hpf (None Seen) H 11/19/18 14:44 Ur Culture Indicated? YES (NO) A 11/19/18 14:44 Microbiology, Last 48 Hours 11/19/18 16:10 Blood Culture - Final Peripheral Venipuncture No growth. Final report. 11/19/18 16:10 Blood Culture - Final Peripheral Venipuncture No growth. Final report. Consult Discharge Plan - Plan [facility]errals: [facility] [Primary Care Provider] -
--- NOTE | 2018-11-26 13:28 | Internal Med Progress Note ---
Hospitalist Progress Note - Encounter Date of Encounter: 11/26/18 Time of Encounter: 13:28 - Subjective Interval History: Pt denies fever, chills, N/V or diarrhea. He denies chest pain or SOB. - Exam Vitals: Temp Pulse Resp BP Pulse Ox 98.5 F 71 15 131/64 96 11/26/18 10:57 11/26/18 10:57 11/26/18 10:57 11/26/18 10:57 11/26/18 10:57 Exam: General: Alert, mumbled speech. not in acute distress. HEENT: Head normocephalic and atraumatic, Eyes: PEERLA, EOMI, Sclera is white. ENMT: Oral/pharyngeal mucosa is normal in appearance. There is no discharge from nose or ears. Cardiovascular:Normal S1 & S2, No JVD. Pulse regular. Lungs: clear to auscultation, no wheezes/rales Abdomen:Soft, non-tender, no rigidity. : Suprapubic catheter draining relatively clear urine. No CVA tenderness Extremities: Left heel dressing c/d/i Neurological: grossly non-focal. Psych: CN II - XII grossly intact Skin: warm and dry - Assessment and Plan (1) Complicated UTI (urinary tract infection) Current Visit: Yes Status: Acute Assessment and Plan: Presented after an episode of fall and persistent leukocytosis of 19 but it appears to have improved from 11/16- when it was above 20 on chronic suprapubic catheter, unable to determine whether it is directly- related reportedly on unasyn at the [place] nursing facility, sensitivities from urine culture on 11/02 reviewed urine culture at our facility came back P. sen to cefepime, Cipro, Levaquin, and Zosyn abx switched to Cefepime, continue D5. Persistent leukocytosis with lymphocytes predominance. Seen by oncology and cytometry sent. Follow up out pt with oncology. US retroperitoneum unremarkable. (2) Hyperglycemia Current Visit: Yes Status: Resolved Assessment and Plan: History of diabetes, glycemic control likely aggravated by ongoing infection. Increase levemir to 15U BID to 20 units BID. Continue moderate dose sliding scale ADA diet (3) Dehydration Current Visit: Yes Status: Resolved Assessment and Plan: improved with IVF Encourage oral intake (4) Hypernatremia Current Visit: Yes Status: Resolved Assessment and Plan: Due to lack of water intake Resolved with 0.45% saline (5) CAD (coronary artery disease) Current Visit: Yes Status: Chronic Assessment and Plan: ASA and Lipitor (6) Osteomyelitis Current Visit: Yes Status: Suspected Assessment and Plan: Known decubitus ulcer over L heel ESR/CRP mildly elevated XR showed large soft tissue ulceration as well as questionable errosion along the plantar aspect of the posterior calcaneus. CT showed left calcaneal osteomyelitis as well as small abscess at the plantar aspect of the posterior calcaneus appreciate podiatry input, low suspicion for superficial or deep-seated infection despite the radiological findings continue abx as above for now, follow with ID. (7) Abscess Current Visit: Yes Status: Acute Assessment and Plan: as above (8) Leukocytosis Current Visit: Yes Status: Acute Assessment and Plan: Unsure whether it is purely related to infectious process as above hematology consult saw the pt and recommends out pt follow up for further work up. (9) Fall Current Visit: Yes Status: Acute Assessment and Plan: Appears to be mechanical in nature in the setting of infection Consulting PT/OT to see. 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 History is somewhat limited due to pt's underlying cognitive impairment hence further information was obtained from the ED physician. He was recently discharged from [place] medical floor after being treated for MDRO UTI with IV Unasyn. Today, pt was rushing to get cleaned, missed a footing, and fell. Unwitnessed, no [facility]u per [facility] staff. No report of prodromal symptoms, seizure like activities, loss of bowel control, or confusion after the fall. No fever/chills, N/V, abdominal pain, flank pain. Denies any chest pain, shortness of breath, cough, or sputum production. In the ED, he was afebrile and hemodynamically stable. Labwork showed leukocytosis of 19 with peripheral blood smear showing increased mature lymphocytes. Sodium of 147, creatinine 0.87, and glucose of 428. Lactate normal. Urinalysis revealed small amount of LE. CT head and cervical spine did not show any traumatic injury. Chest x-ray grossly normal. Patient was given IVF, IV insulin 10U, and admitted for further management. Upon reviewing the record from [place], his white count for the last 3 days were above 20. - Time Spent with Patient Total time spent is greater than 50% in coordination of care (as documented) at patient's floor/unit and/or counseling patient: less than 15 minutes Plan of Care Discussed with: patient Internal Medicine: Result - Labs CBC & Chem 7: 11/25/18 02:52 11/25/18 02:52 - ABG Interpretation ABG results: PT/INR, D-dimer PT 12.2 Seconds (9.4-12.1) H 11/23/18 05:40 Consult Discharge Plan - Plan Referrals: [place],PCP [Primary Care Provider] - (5) CAD (coronary artery disease) Qualifiers: Coronary Disease-Associated Artery/Lesion type: unspecified vessel or lesion type [place] vs. transplanted heart: [place] heart Associated angina: without angina Qualified Code(s): I25.10 - Atherosclerotic heart disease of [place] coronary artery without angina pectoris (6) Osteomyelitis Qualifiers: Osteomyelitis type: unspecified type Osteomyelitis location: foot Laterality: left Qualified Code(s): M86.9 - Osteomyelitis, unspecified (8) Leukocytosis Qualifiers: Leukocytosis type: lymphocytosis Qualified Code(s): D72.820 - Lymphocytosis (symptomatic) (9) Fall Qualifiers: Encounter type: initial encounter Qualified Code(s): W19.XXXA - Unspecified fall, initial encounter
--- NOTE | 2018-11-26 17:25 | Discharge Summary ---
- NOTES TO OUTPATIENT PROVIDER Notes to Outpatient Provider: PCP in 5 to 7 days Orders not resulted at time of discharge: Pending orders 11/25/18 02:52 Peripheral Bld Flow-[facility] Routine Date of Encounter: 11/26/18 Time of Encounter: 17:23 - Discharge Diagnosis (1) Osteomyelitis Priority: Primary Status: Suspected Assessment and Plan: Known decubitus ulcer over L heel ESR/CRP mildly elevated XR showed large soft tissue ulceration as well as questionable erosion along the plantar aspect of the posterior calcaneus. CT showed left calcaneal osteomyelitis as well as small abscess at the plantar aspect of the posterior calcaneus appreciate podiatry input, low suspicion for superficial or deep-seated infection despite the radiological findings Continue abx as above for now, follow with ID. Qualifiers: Osteomyelitis type: unspecified type Osteomyelitis location: foot Laterality: left Qualified Code(s): M86.9 - Osteomyelitis, unspecified (2) Complicated UTI (urinary tract infection) Priority: Primary Status: Acute Assessment and Plan: Presented after an episode of fall and persistent leukocytosis of 19 but it appears to have improved from 11/16- when it was above 20 on chronic suprapubic catheter, unable to determine whether it is directly- related reportedly on unasyn at the [place] nursing facility, sensitivities from urine culture on 11/02 reviewed urine culture at our facility came back Pseudomonas aeruginosa sensitive to cefepime, Cipro, Levaquin, and Zosyn antibiotics switched to Cefepime, continue D5. Persistent leukocytosis with lymphocytes predominance. Will DC on Cipro for a few more days. (3) Hyperglycemia Priority: Secondary Status: Resolved Assessment and Plan: History of diabetes, glycemic control likely aggravated by ongoing infection. Increase levemir to 15U BID to 20 units BID. Continue moderate dose sliding scale ADA diet (4) Dehydration Priority: Secondary Status: Resolved Assessment and Plan: Improved with IVF Encourage oral intake (5) Hypernatremia Priority: Secondary Status: Resolved Assessment and Plan: Due to lack of water intake Resolved with 0.45% saline (6) CAD (coronary artery disease) Priority: Secondary Status: Chronic Assessment and Plan: ASA and Lipitor Qualifiers: Coronary Disease-Associated Artery/Lesion type: unspecified vessel or lesion type [place] vs. transplanted heart: [place] heart Associated angina: without angina Qualified Code(s): I25.10 - Atherosclerotic heart disease of [place] coronary artery without angina pectoris (7) Abscess Priority: Secondary Status: Acute Assessment and Plan: as above (8) Leukocytosis Priority: Secondary Status: Acute Assessment and Plan: Unsure whether it is purely related to infectious process as above. Seen by oncology and cytometry sent. US retroperitoneum unremarkable. Hematology consult saw the pt and recommends out pt follow up for further work up. Qualifiers: Leukocytosis type: lymphocytosis Qualified Code(s): D72.820 - Lymphocytosis (symptomatic) (9) Fall Priority: Secondary Status: Acute Assessment and Plan: Appears to be mechanical in nature in the setting of infection Consulted PT/OT and recommending rehab. Qualifiers: Encounter type: initial encounter Qualified Code(s): W19.XXXA - Unspecified fall, initial encounter Hospital course: Mr. Haynes is a 68 year old male - Time Spent with Patient Total time spent providing and/or coordinating discharge services: - Discharge Medications Prescriptions: No Action amLODIPine [Norvasc] 10 mg PO DAILY Aspirin 81 mg PO DAILY Atorvastatin [Lipitor] 20 mg PO HS Bacitracin OINT PKT [Ak-Tracin] 1 appl TP DAILY Bisacodyl [Dulcolax] 10 mg PRIME MOWEFR Brimonidine 0.2% [Alphagan] 1 drop BOTH EYES BID Cholecalciferol (D-3) [Vitamin D] 1,000 units PO DAILY Clopidogrel [Plavix] 75 mg PO DAILY Insulin LISPRO [Humalog] 4 unit SQ TIDWM Insulin Glargine,Hum.rec.anlog [Basaglar Kwikpen U-100] 31 unit SQ QAM Isosorbide MONOnitrate (24 HR) [Imdur] 30 mg PO DAILY Lactulose [Enulose] 20 gm PO BID lamoTRIgine [Lamotrigine] 150 mg PO DAILY Losartan [Cozaar] 50 mg PO DAILY metFORMIN [Glucophage] 850 mg PO TIDWM Metoprolol Succinate [Toprol Xl] 25 mg PO DAILY Magnesium Hydroxide [Milk of Magnesia] 30 ml PO DAILY PRN PRN Reason: Constipation Multivitamin [One Daily Multivitamin] 1 tab PO DAILY Ondansetron [Zofran] 4 mg IVP Q4H PRN PRN Reason: Nausea Pantoprazole Sodium [Protonix] 40 mg PO DAILY Polyethylene Glycol 3350 [MiraLAX] 17 gm PO DAILY Tramadol HCl [Ultram] 50 mg PO TID PRN PRN Reason: Pain Travoprost [Travatan Z] 1 drop BOTH EYES HS Ziprasidone HCl [Geodon] 60 mg PO BIDWM Acetaminophen [Tylenol] 650 mg PO Q6HR PRN PRN Reason: PAIN/FEVER Home Medications: Acetaminophen [Tylenol] 650 mg PO Q6HR PRN 11/20/18 [History] Aspirin 81 mg PO DAILY 11/20/18 [History] Atorvastatin [Lipitor] 20 mg PO HS 11/20/18 [History] Bacitracin OINT PKT [Ak-Tracin] 1 appl TP DAILY 11/20/18 [History] Bisacodyl [Dulcolax] 10 mg PRIME MOWEFR 11/20/18 [History] Brimonidine 0.2% [Alphagan] 1 drop BOTH EYES BID 11/20/18 [History] Cholecalciferol (D-3) [Vitamin D] 1,000 units PO DAILY 11/20/18 [History] Clopidogrel [Plavix] 75 mg PO DAILY 11/20/18 [History] Insulin Glargine,Hum.rec.anlog [Basaglar Kwikpen U-100] 31 unit SQ QAM 11/20/18 [History] Insulin LISPRO [Humalog] 4 unit SQ TIDWM 11/20/18 [History] Isosorbide MONOnitrate (24 HR) [Imdur] 30 mg PO DAILY 11/20/18 [History] Lactulose [Enulose] 20 gm PO BID 11/20/18 [History] Losartan [Cozaar] 50 mg PO DAILY 11/20/18 [History] Magnesium Hydroxide [Milk of Magnesia] 30 ml PO DAILY PRN 11/20/18 [History] Metoprolol Succinate [Toprol Xl] 25 mg PO DAILY 11/20/18 [History] Multivitamin [One Daily Multivitamin] 1 tab PO DAILY 11/20/18 [History] Ondansetron [Zofran] 4 mg IVP Q4H PRN 11/20/18 [History] Pantoprazole Sodium [Protonix] 40 mg PO DAILY 11/20/18 [History] Polyethylene Glycol 3350 [MiraLAX] 17 gm PO DAILY 11/20/18 [History] Tramadol HCl [Ultram] 50 mg PO TID PRN 11/20/18 [History] Travoprost [Travatan Z] 1 drop BOTH EYES HS 11/20/18 [History] Ziprasidone HCl [Geodon] 60 mg PO BIDWM 11/20/18 [History] amLODIPine [Norvasc] 10 mg PO DAILY 11/20/18 [History] lamoTRIgine [Lamotrigine] 150 mg PO DAILY 11/20/18 [History] metFORMIN [Glucophage] 850 mg PO TIDWM 11/20/18 [History] Allergies/Adverse Reactions: Allergy/AdvReac Type Severity Reaction Status Date / Time Amoxicillin Allergy Anaphylaxis Verified 07/09/16 17:38 clavulanic acid Allergy Anaphylaxis Verified 07/09/16 17:38 Date of admission: 11/20/18 08:35 [facility] Consults: 11/19/18 16:45 Consult to Infectious Diseases [CONS] Routine Consulting Provider: Infectious [facility] Reason for Consult: recent MDRO UTI with Klebsiella and proteus, persistent leukocytosis Call Completed: Yes 11/22/18 08:30 Consult to Podiatry [CONS] Routine Consulting Provider: Podiatry [facility] Reason for Consult: L calcaneal OM and abscess Call Completed: Yes 11/24/18 10:02 Consult to Oncology Hematology [CONS] Routine Consulting Provider: Cici Vera Reason for Consult: lymphocytosis with smudge cells ?CLL Call Completed: Yes 11/25/18 18:33 PT [Consult to Physical Therapy] [CONS] Routine Comment: Evaluate, develop and implement POC Reason for Consult: fall Does patient have active BEDREST order?: No Is patient medically & hemodynamically stable?: Yes Patient assessed for mobility or mobilized this visit?: No Discharging clinician: Jewels Padilla Anticipated date of discharge: 11/27/18 - Constitutional Vitals: Temp Pulse Resp BP Pulse Ox 97.7 F 66 15 123/54 100 11/26/18 15:22 11/26/18 15:22 11/26/18 15:22 11/26/18 15:22 11/26/18 15:22 Exam: General: Alert, mumbled speech. not in acute distress. HEENT: Head normocephalic and atraumatic, Eyes: PEERLA, EOMI, Sclera is white. ENMT: Oral/pharyngeal mucosa is normal in appearance. There is no discharge from nose or ears. Cardiovascular:Normal S1 & S2, No JVD. Pulse regular. Lungs: clear to auscultation, no wheezes/rales Abdomen:Soft, non-tender, no rigidity. : Suprapubic catheter draining relatively clear urine. No CVA tenderness Extremities: Left heel dressing c/d/i Neurological: grossly non-focal. Psych: CN II - XII grossly intact Skin: warm and dry - Patient Status Disposition: Transfer SNF Condition: Fair Overall status at discharge: patient is progressing back to baseline - Discharge Instructions [facility]: [facility] Provider[facility] - Forms: ED Satisfaction Letter - Diet and Activity Activity: increase activity as tolerated Diet: diabetic diet, low fat, low cholesterol, low salt diet
--- NOTE | 2018-11-26 17:47 | Physician Discharge Referral ---
ExtendedCare Referral Info Transfer To: SNF Provider in Charge after Transfer: PCP Institutional Level of Care: Skilled - Diagnosis (1) Osteomyelitis Status: Suspected (2) Complicated UTI (urinary tract infection) Status: Acute (3) Hyperglycemia Status: Resolved (4) Dehydration Status: Resolved (5) Hypernatremia Status: Resolved (6) CAD (coronary artery disease) Status: Chronic (7) Abscess Status: Acute (8) Leukocytosis Status: Acute (9) Fall Status: Acute - Transfer Medications Home Medications: Acetaminophen [Tylenol] 650 mg PO Q6HR PRN 11/20/18 [History] Aspirin 81 mg PO DAILY 11/20/18 [History] Atorvastatin [Lipitor] 20 mg PO HS 11/20/18 [History] Bacitracin OINT PKT [Ak-Tracin] 1 appl TP DAILY 11/20/18 [History] Bisacodyl [Dulcolax] 10 mg PRIME MOWEFR 11/20/18 [History] Brimonidine 0.2% [Alphagan] 1 drop BOTH EYES BID 11/20/18 [History] Cholecalciferol (D-3) [Vitamin D] 1,000 units PO DAILY 11/20/18 [History] Clopidogrel [Plavix] 75 mg PO DAILY 11/20/18 [History] Insulin Glargine,Hum.rec.anlog [Basaglar Kwikpen U-100] 31 unit SQ QAM 11/20/18 [History] Insulin LISPRO [Humalog] 4 unit SQ TIDWM 11/20/18 [History] Isosorbide MONOnitrate (24 HR) [Imdur] 30 mg PO DAILY 11/20/18 [History] Lactulose [Enulose] 20 gm PO BID 11/20/18 [History] Losartan [Cozaar] 50 mg PO DAILY 11/20/18 [History] Magnesium Hydroxide [Milk of Magnesia] 30 ml PO DAILY PRN 11/20/18 [History] Metoprolol Succinate [Toprol Xl] 25 mg PO DAILY 11/20/18 [History] Multivitamin [One Daily Multivitamin] 1 tab PO DAILY 11/20/18 [History] Ondansetron [Zofran] 4 mg IVP Q4H PRN 11/20/18 [History] Pantoprazole Sodium [Protonix] 40 mg PO DAILY 11/20/18 [History] Polyethylene Glycol 3350 [MiraLAX] 17 gm PO DAILY 11/20/18 [History] Tramadol HCl [Ultram] 50 mg PO TID PRN 11/20/18 [History] Travoprost [Travatan Z] 1 drop BOTH EYES HS 11/20/18 [History] Ziprasidone HCl [Geodon] 60 mg PO BIDWM 11/20/18 [History] amLODIPine [Norvasc] 10 mg PO DAILY 11/20/18 [History] lamoTRIgine [Lamotrigine] 150 mg PO DAILY 11/20/18 [History] metFORMIN [Glucophage] 850 mg PO TIDWM 11/20/18 [History] Ciprofloxacin [Cipro] 500 mg PO BID tablet 11/26/18 [Rx] Allergies/Adverse Reactions: Allergy/AdvReac Type Severity Reaction Status Date / Time Amoxicillin Allergy Anaphylaxis Verified 07/09/16 17:38 clavulanic acid Allergy Anaphylaxis Verified 07/09/16 17:38 - Respiratory Orders Smoking Cessation: Smoking cessation has been advised. For more information, call the [place] Tobacco Quit Line at 2-310-JGRX-NOW. - Advance Directives Code Status: DNR-Arrest/Don't Intubate - Rehabiliation Orders Rehab Orders: Evaluation for Physical Therapy, Evaluation for Occupational Therapy - Diet Orders Cardiac CERTIFICATION: I certify that the transfer of the above named patient to an Extended Care Facility is necessary for the continuing treatment of the diagnosis listed. The above information is true and accurate reflection of patient's current condition. Confidential - Redisclosure prohibited without a patient's written consent.
[2018-11-26] MEDS: Latanoprost 2.5 ML BOTTLE BOTH EYES SCH ×2 (22:17→22:23)
[2018-11-26] MEDS: Ondansetron 4 MG/2 ML VIAL IVP PRN (23:34)
[2018-11-27] MEDS: *HR* Heparin 5,000 UNIT/ML VIAL SQ SCH (05:13)
--- NOTE | 2018-11-27 08:18 | Internal Med Progress Note ---
Hospitalist Progress Note - Encounter Date of Encounter: 11/27/18 Time of Encounter: 08:16 - Subjective Interval History: Patient doing well this morning. No complaints. Patient is ready for discharge. - Exam Vitals: Temp Pulse Resp BP Pulse Ox 98.4 F 116 16 142/58 97 11/27/18 07:49 11/27/18 07:49 11/27/18 07:49 11/27/18 07:49 11/27/18 07:49 Exam: Heart: Regular rate and rhythm, no murmurs, rubs, gallops Lungs: Clear to auscultation bilaterally, no rales, rhonchi, wheezes - Assessment and Plan (1) Complicated UTI (urinary tract infection) Current Visit: Yes Status: Acute Assessment and Plan: Patient seems recurring well. Continue Cipro for 10 days (2) Hyperglycemia Current Visit: Yes Status: Resolved Assessment and Plan: Resolved. Continue current insulin regimen (3) Hypernatremia Current Visit: Yes Status: Resolved Assessment and Plan: Resolved. Continue to encourage by mouth intake (4) CAD (coronary artery disease) Current Visit: Yes Status: Chronic (5) Fall Current Visit: Yes Status: Acute Assessment and Plan: Appears to be mechanical in nature in the setting of infection [facility] (6) Osteomyelitis Current Visit: Yes Status: Suspected - Time Spent with Patient Total time spent is greater than 50% in coordination of care (as documented) at patient's floor/unit and/or counseling patient: Internal Medicine: Result - Labs CBC & Chem 7: 11/25/18 02:52 11/25/18 02:52 - ABG Interpretation ABG results: PT/INR, D-dimer PT 12.2 Seconds (9.4-12.1) H 11/23/18 05:40 Consult Discharge Plan - Plan [facility]errals: [facility] [Primary Care Provider] - (4) CAD (coronary artery disease) Qualifiers: Coronary Disease-Associated Artery/Lesion type: unspecified vessel or lesion type [place] vs. transplanted heart: [place] Associated angina: without angina Qualified Code(s): I25.10 - Atherosclerotic heart disease of [place] coronary artery without angina pectoris (5) Fall Qualifiers: Encounter type: initial encounter Qualified Code(s): W19.XXXA - Unspecified fall, initial encounter (6) Osteomyelitis Qualifiers: Osteomyelitis type: unspecified type Osteomyelitis location: foot Laterality: left Qualified Code(s): M86.9 - Osteomyelitis, unspecified
[2018-11-27] MEDS: lamoTRIgine 100 MG TABLET PO SCH (09:45)
[2018-11-27] MEDS: Ziprasidone 20 MG CAPSULE PO SCH (09:45)
[2018-11-27] MEDS: Isosorbide MONOnitrate (24 HR) 30 MG TAB.ER.24H PO SCH (09:45)
[2018-11-27] MEDS: Cholecalciferol (D-3) 1,000 UNIT TABLET PO SCH (09:45)
[2018-11-27] MEDS: Metoprolol XL (24 HR) Succ 50 MG TAB.ER.24H PO SCH (09:45)
[2018-11-27] MEDS: Aspirin 81 MG TAB.CHEW PO SCH (09:45)
[2018-11-27] MEDS: Lactulose Oral Soln 20 GM/30 ML UDC PO SCH (09:46)
[2018-11-27] MEDS: Insulin DETEMIR 100 UNIT/ML X5UNITS SQ SCH (09:46)
[2018-11-27] MEDS: amLODIPine 5 MG TABLET PO SCH (09:46)
[2018-11-27] MEDS: Insulin LISPRO 300 UNITS/3 ML VIAL SQ SCH (09:47)
[2018-11-27 10:49] VITALS: BP 124/50
== END 2018-11-27 11:16 | DRG 638 ==
LOC: EMEROOARM 12:53 → 3ANU 12:53 → SUATTDRO 19:00 → 3ANU 20:12 → SUATTDRO 11-20 08:35
PROVIDERS: ADMIT Internal Medicine; ATTEND Internal Medicine